=== PATIENT | female | born 1965 | race Caucasian/White ===

== ENCOUNTER 2016-12-11 08:18 | Inpatient (IN) | payer BC, SELFPAY ==
[2016-12-11 09:36] LABS: #Eosinphils 0.2 thou/uL (0.0-0.7); #Lymphocytes 2.8 thou/uL (1.20-3.40); #Monocytes 0.6 thou/uL (0.11-0.59); #Neutrophils 6.7 thou/uL (1.40-6.50); %Basophils 0.3 % (0.0-1.0); %Eosinophils 2.1 % (0.0-10.0); %Lymphocytes 27.3 % (21.0-51.0); %Monocytes 5.8 % (0.0-10.0); Hematocrit 56.4 % (36.0-47.0); Mean Platelet Volume 11.2 fL (7.4-10.4); Red Blood Cell (RBC) Count 6.55 mill/uL (4.20-5.40); White Blood Cell (WBC) Count 10.4 thou/uL (4.8-10.8)
[2016-12-11 09:44] LABS: ALT (SGPT) 24 U/L (8-55); AST (SGOT) 31 U/L (5-34); Alkaline Phosphatase 80 U/L (40-150); Anion Gap 22 mmol/L (10-20); BUN (Urea Nitrogen) 39 mg/dL (9.8-20.1); Bilirubin, Total 0.5 mg/dL (0.2-1.2); CK (CPK) 119 U/L (29-168); Calc. Creatinine Clearance 0 mL/min (70-130); Calcium 10.1 mg/dL (7.8-10.44); Carbon Dioxide 20 mmol/L (22-29); Chloride 118 mmol/L (98-107); Estimated GFR-MDRD 31
[2016-12-11 09:51] LABS: Acetaminophen Less than 6.0 mcg/mL (10.0-30.0); Salicylate Less than 8.0 mg/dL (15.0-30.0)
[2016-12-11 11:25] LABS: Troponin I 0.024 ng/mL (< 0.028)
--- NOTE | 2016-12-11 11:38 | HP ---
PRIMARY CARE PHYSICIAN: Dr. Barrios. REASON FOR ADMISSION: Acute kidney failure, severe dehydration, failure to thrive in adult. HISTORY OF PRESENT ILLNESS: A 51-year-old female who has underlying history of dementia as well as history of bipolar disorder who was brought to the emergency room by her . The patient's noticed that she appeared significantly dehydrated based on her skin, based on her and her tongue and patient was also not eating and drinking for the last several days. Whenever her was giving her food, she was keeping in her mouth and not swallowing. Similarly whenever he was trying to push her to drink liquids, she was only drinking little amount, but she was not drinking. The patient's reports that this is not because she cannot swallow, but because of she is feeling frustrated. Whenever this patient has to swallow, she can swallow well without any choking, without any dysphagia, but patient was appeared down in her mood sanchez for the last several days and she started drinking less and less as well as not eating much. The patient also lost a significant amount of weight for the last month. At home, patient was only eating yogurt and that was also very little amount. This patient has difficulty speaking and her problem is ongoing for about a year. This patient had exactly similar problem in 09/2015. At that time, the patient had dehydration and GI team was consulted to do evaluation for PEG tube, but the patient was not meeting criteria for PEG tube as the patient was able to eat. The patient's is also following her at [facility]. REVIEW OF SYSTEMS: All review of systems tried to review with the patient, but unable to review because patient has dementia plus patient is not able to talk. She is awake, but she does not want to talk, so unable to review all review of systems. PAST MEDICAL HISTORY: History of rheumatoid arthritis, diagnosed in 2014. The patient saw Dr. Gallardo in the past, hypertension, vestibular schwannoma, dementia. PAST SURGICAL HISTORY: Cholecystectomy, right knee surgery, ovarian cyst removed. PAST PSYCHIATRIC HISTORY: Bipolar disorder. ALLERGIES: Patient is allergic to CELECOXIB and CODEINE. CURRENT HOME MEDICATIONS: The patient's did not bring any medication at this point, so unable to review her home medication. Based on our previous hospital discharge summary, patient was on Limbrel 1 capsule twice daily, vitamin B12 1000 mcg daily, multivitamin 1 tablet daily, Zofran p.r.n., Protonix daily, thiamine 100 mg daily. We will verify the patient's home medication when the patient's brings medication. SOCIAL HISTORY: Patient is a former smoker. She is . She lives at home with her . No history of alcohol abuse. She has a remote history of drug use in the past, but not currently. FAMILY HISTORY: No strong family history of CAD, CVA or cancer. EMERGENCY ROOM COURSE: Patient is receiving IV fluid. PHYSICAL EXAMINATION: VITAL SIGNS: Currently, blood pressure is 131/92, pulse 107, respiratory rate 18, temperature 98.8, saturation 95% on room air, weight 72.5 kilograms. GENERAL: Patient is currently alert, arousable, no obvious acute distress. HEAD: Normocephalic, atraumatic. EYES: Pupils round, reactive to light. Extraocular muscles intact. ENT: Dry mucous membranes. No oral lesions, no pharyngeal erythema, no exudate. NECK: Supple. Range of motion is normal. No meningeal signs of irritation. LUNGS: Clear to auscultation without any rhonchi or rales. CARDIAC: S1, S2 regular without any murmur. ABDOMEN: Soft, bowel sounds present, nontender, nondistended. No organomegaly , no mass, no suprapubic tenderness. BACK: Unremarkable, no CVA tenderness. EXTREMITIES: Upper extremity: Passive movement of all joints are normal. Lower extremity: Passive movement of all joints are normal. No edema, good peripheral pulsation. SKIN: No skin rash other than dry. NEUROLOGIC: Patient is moving all four limbs. She is awake, keeps her eyes open. Moves all 4 limbs. The patient is nonverbal. She only simply nodes her head to yes or no, but focal neurological deficit is not elicited. PSYCHIATRIC: Flat affect. SIGNIFICANT LABORATORY DATA: 1. CBC: WBC 10.4, hemoglobin 16.7, platelets 256. BMP: Sodium 156, potassium 4.0, chloride 118, carbon dioxide 20, anion gap 22, BUN 39, creatinine 1.71, glucose 102, calcium 10.1. 2. LFT: AST 31, ALT 24, alkaline phosphatase 80, albumin 4.0, total protein 10.0. TSH 1.60. Serum drug screen negative. engine monitor showing sinus rhythm. ASSESSMENT AND PLAN: 1. Acute kidney failure. This patient has prerenal acute kidney failure, likely due to underlying volume depletion secondary to poor p.o. intake. At this point, the patient is receiving IV fluid in the emergency room. We will continue with dextrose half normal saline at 125 mL per hour and we will repeat BMP tomorrow. We are expecting with hydration, her renal function will improve. 2. Hypernatremia due to volume depletion and underlying dehydration. After NS , we will change IV fluid to dextrose half normal saline at 125 mL per hour and we will repeat BMP tomorrow. 3. Failure to thrive in adult, this patient has very limited p.o. intake and her p.o. intake limited is most likely underlying dementia, psychiatric problem. The patient does not have any mechanical problem for her swallowing. At this point, patient will need nutritional supplement. If this patient has recurrent problems with dehydration and volume depletion, then in future, we may need to address PEG tube placement. 4. Dementia of unclear etiology. The patient will need supportive treatment. We will continue with vitamin therapy. 5. Bipolar disorder. The patient is not on any specific medication at this point, but will bring her home medication and restart all those medications. This patient will need MR follow up. We will try to consult MR to see if this patient needs any inpatient psychiatric treatment for her behavior not to eat. 6. Metabolic acidosis, elevated anion gap, likely due to acute kidney failure. We will repeat BMP tomorrow. 7. Deep venous thrombosis prophylaxis, heparin 5000 units subcu twice daily. 8. Gastrointestinal prophylaxis, Protonix 40 mg p.o. daily. CODE STATUS: The patient is FULL CODE. Patient's is surrogate decision maker. Disposition and plan based on clinical course. We are expecting patient's stay in hospital more than 2 midnights. Plan of care discussed with the patient's at bedside in the emergency room. JOCELYNE
[2016-12-11] MEDS ORDERED: Loratadine 10 MG TAB PO PRN (12:27)
[2016-12-11] MEDS ORDERED: Senokot 8.6 MG TAB PO PRN (12:27)
[2016-12-11] MEDS ORDERED: Loperamide HCl 2 MG CAP PO PRN (12:27)
[2016-12-11] MEDS ORDERED: Milk Of Magnesia 30 ML UDCUP PO PRN (12:27)
[2016-12-11] MEDS ORDERED: Eucerin (Mineral Oil/Petrolatum,White) 30 gm Jar TOP PRN (12:27)
[2016-12-11] MEDS ORDERED: Ondansetron ODT 4 MG TAB PO PRN (12:27)
[2016-12-11] MEDS ORDERED: Diabetic Tussin 200 MG/10 ML UDCUP PO PRN (12:27)
[2016-12-11] MEDS ORDERED: Sodium Chloride 0.65% Nasal 44 ML BOT EA NARE PRN (12:27)
[2016-12-11] MEDS ORDERED: Ondansetron HCl/PF 4 MG/2 ML Vial IVP PRN (12:27)
[2016-12-11] MEDS ORDERED: Zolpidem Tartrate 5 MG TAB PO PRN (12:27)
[2016-12-11] MEDS ORDERED: Mag-Al 1200 mg/1200 mg/30 ML UDCUP PO PRN (12:27)
[2016-12-11] MEDS ORDERED: Acetaminophen 325 MG TAB PO PRN (12:27)
[2016-12-11] MEDS ORDERED: Artificial Tears 18 DROP/0.9 ML EA EYE PRN (12:27)
[2016-12-11 12:29] VITALS: BMI 28.6
[2016-12-11] MEDS: Dextrose 5 %-0.45 % NaCl 1,000 ML IV SCH ×2 (13:35→20:46)
--- NOTE | 2016-12-11 13:59 | CT ---
CT BRAIN NONCONTRAST: DATE: 12/11/16 HISTORY: 51-year-old female with altered mental status, dementia, and depression, with anorexia. COMPARISON: No prior brain CTs. There is a MRI of 10/13/15. FINDINGS: There is diffuse brain parenchymal volume loss of the cerebrum, especially the frontal lobes, greate r than expected for age. There is asymmetrically prominent greater degree of focal atrophy involving the right temporal tip. There is no significant parenchymal volume loss involving the brainstem or cerebellum. The lateral and third ventricles are mildly dilated on an ex vacuo basis, especially the right temporal horn. No acute intra-axial or extra-axial hemorrhage, mass effect, midline shift, or extra-axial fluid collection. Paranasal sinuses are clear. The calvarium is intact. IMPRESSION: 1. Brain atrophy, greater than expected for age. Consider frontotemporal dementia. 2. Encephalomalacia in the anterior portion of the right temporal lobe (temporal tip), which may re present an old insult, such as prior trauma or old infarction. 3. No acute intracranial findings. JOSE Castro POS: MAKSIM
[2016-12-11] MEDS: Heparin 5,000 UNITS/ML VIAL SC SCH (20:45)
[2016-12-12] MEDS: Dextrose 5 %-0.45 % NaCl 1,000 ML IV SCH ×3 (02:30→20:02)
[2016-12-12 05:25] LABS: #Basophils 0.1 thou/uL (0.0-0.2); #Eosinphils 0.3 thou/uL (0.0-0.7); #Monocytes 0.6 thou/uL (0.11-0.59); #Neutrophils 3.6 thou/uL (1.40-6.50); %Basophils 0.7 % (0.0-1.0); %Eosinophils 4.4 % (0.0-10.0); %Lymphocytes 39.5 % (21.0-51.0); %Monocytes 7.6 % (0.0-10.0); Mean Platelet Volume 11.1 fL (7.4-10.4); Red Blood Cell (RBC) Count 5.17 mill/uL (4.20-5.40); White Blood Cell (WBC) Count 7.5 thou/uL (4.8-10.8)
[2016-12-12 06:17] LABS: ALT (SGPT) 15 U/L (8-55); AST (SGOT) 23 U/L (5-34); Alkaline Phosphatase 58 U/L (40-150); Anion Gap 8 mmol/L (10-20); BUN (Urea Nitrogen) 28 mg/dL (9.8-20.1); Bilirubin, Total 0.5 mg/dL (0.2-1.2); Calc. Creatinine Clearance 66 mL/min (70-130); Calcium 8.7 mg/dL (7.8-10.44); Carbon Dioxide 24 mmol/L (22-29); Chloride 120 mmol/L (98-107); Estimated GFR-MDRD 49; Globulin 4.2 g/dL (2.4-3.5); Protein, Total 7.2 g/dL (6.0-8.3)
[2016-12-12] MEDS: Heparin 5,000 UNITS/ML VIAL SC SCH ×2 (07:49→20:02)
[2016-12-12] MEDS ORDERED: Potassium Chloride 20 MEQ/100 ML PREMIX BAG IVPB SCH (08:45)
[2016-12-12 11:12] LABS: Bilirubin Small (Negative); Blood, Urine Negative (Negative); Glucose, Urine (Dipstick) Negative (Negative); Ketone, Urine Negative (Negative); Nitrite Negative (Negative); Protein, Urine (Dipstick) Trace mg/dL (Neg-Trace)
[2016-12-12 11:26] LABS: Bacteria/HPF 2+ HPF (None Seen); Hyaline Casts/LPF 7-10 HYALINE CAST LPF (0-3 Hyaline); RBC/HPF 0-3 HPF (0-3)
--- NOTE | 2016-12-12 14:44 | PDOC.PN ---
- Subjective Encounter Start Date: 12/12/16 Encounter Start Time: 11:45 -: old records requested/rev Patient seen and examined. No overnight events, still has no po intake, no fever - Objective Resuscitation Status: Resuscitation Status FULL:Full Resuscitation MAR Reviewed: Yes Vital Signs & Weight: Vital Signs (12 hours) Temp Pulse Resp BP Pulse Ox 12/12/16 11:31 98.4 F 65 16 117/68 100 12/12/16 07:59 98.5 F 65 18 142/92 H 95 12/12/16 07:55 98.5 F 62 20 98 12/12/16 04:00 98.5 F 74 20 137/84 98 Result Diagrams: 12/12/16 04:55 12/12/16 04:55 Phys Exam - Physical Examination Constitutional: NAD HEENT: PERRLA, moist MMs, sclera anicteric Neck: no JVD, supple Respiratory: no wheezing, no rales, no rhonchi Cardiovascular: RRR, no significant murmur, no rub Gastrointestinal: soft, non-tender, no distention, positive bowel sounds Musculoskeletal: no edema, pulses present Neurological: non-focal, normal sensation, moves all 4 limbs Lymphatic: no nodes Psychiatric: normal affect Skin: no rash, normal turgor Dx/Plan (1) Dehydration Code(s): E86.0 - DEHYDRATION Status: Acute (2) UTI (urinary tract infection) Status: Acute (3) Acute kidney failure Status: Acute (4) Hypernatremia Code(s): E87.0 - HYPEROSMOLALITY AND HYPERNATREMIA Status: Acute (5) Hypokalemia Code(s): E87.6 - HYPOKALEMIA Status: Acute (6) Failure to thrive in adult Status: Acute (7) Inadequate oral nutritional intake Code(s): R63.8 - OTHER SYMPTOMS AND SIGNS CONCERNING FOOD AND FLUID INTAKE Status: Acute (8) Vestibular schwannoma Code(s): D33.3 - BENIGN NEOPLASM OF CRANIAL NERVES Status: Acute (9) Weight loss Status: Acute (10) Bipolar disorder Code(s): F31.9 - BIPOLAR DISORDER, UNSPECIFIED Status: Chronic (11) Rheumatoid arthritis Code(s): M06.9 - RHEUMATOID ARTHRITIS, UNSPECIFIED Status: Chronic - Plan cont current plan of care, plan discussed w/ family, continue antibiotics, director of social services * continue dex with 1/2 ns at 125 ml per hour * medication reviewed as below * symptomatic treatment * will repeat labs tomorrow * send urine culture and start rocephin 1 gm iv daily * discussed with * may need [facility] evaluation. Review of Systems - Review of Systems Other: unable to review as pt is non verbal and confused - Medications/Allergies Allergies/Adverse Reactions: Allergies Allergy/AdvReac Type Severity Reaction Status Date / Time codeine Allergy Verified 12/11/16 12:26 meperidine HCl [From Demerol] Allergy Verified 12/11/16 12:26 Medications: Current Medications Acetaminophen (Tylenol) 650 mg PO Q4H PRN PRN Reason: Headache/Fever or Pain Al Hydroxide/Mg Hydroxide (Maalox) 30 ml PO Q6H PRN PRN Reason: Heartburn or Indigestion Artificial Tears (Tears Naturale) 0 drop EA EYE PRN PRN PRN Reason: Dry Eyes Guaifenesin (Robitussin Sf) 200 mg PO Q4H PRN PRN Reason: Cough Heparin Sodium (Porcine) (Heparin) 5,000 units SC BID [facility] Last Admin: 12/12/16 07:49 Dose: 5,000 units Hydralazine HCl (Apresoline) 10 mg SLOW IVP Q4H PRN PRN Reason: Systolic BP > 180 Dextrose/Sodium Chloride (D5 1/2 Ns) 1,000 mls @ 125 mls/hr IV .Q8H [facility] Last Admin: 12/12/16 10:38 Dose: 1,000 mls Loperamide HCl (Imodium) 2 mg PO PRN PRN PRN Reason: Diarrhea/Loose Stools Loratadine (Claritin) 10 mg PO DAILYPRN PRN PRN Reason: Sinus Symptoms Magnesium Hydroxide (Milk Of Magnesium) 30 ml PO DAILYPRN PRN PRN Reason: Constipation Mineral Oil/White Petrolatum (Eucerin Cream) 0 gm TOP BIDPRN PRN PRN Reason: Dry Skin Ondansetron HCl (Zofran Odt) 4 mg PO Q6H PRN PRN Reason: Nausea/Vomiting Ondansetron HCl (Zofran) 4 mg IVP Q6H PRN PRN Reason: Nausea/Vomiting Senna (Senokot) 2 tab PO HSPRN PRN PRN Reason: Constipation Sodium Chloride ([place] Nasal [place] 0.65%) 0 ml EA NARE QIDPRN PRN PRN Reason: Nasal Congestion Sodium Chloride (Flush - Normal Saline) 10 ml IVF Q12HR [facility] Last Admin: 12/12/16 07:49 Dose: 10 ml Sodium Chloride (Flush - Normal Saline) 10 ml IVF PRN PRN PRN Reason: Saline Flush Zolpidem Tartrate (Ambien) 5 mg PO HSPRN PRN PRN Reason: Insomnia
[2016-12-12] MEDS: cefTRIAXone\\ROCEPHIN 1 GM in Sodium Chloride 0.9% 100 ML IVPB SCH (16:56)
[2016-12-13] MEDS: Dextrose 5 %-0.45 % NaCl 1,000 ML IV SCH ×2 (04:07→12:13)
[2016-12-13 05:41] LABS: #Eosinphils 0.2 thou/uL (0.0-0.7); #Monocytes 0.6 thou/uL (0.11-0.59); #Neutrophils 3.8 thou/uL (1.40-6.50); %Basophils 0.3 % (0.0-1.0); %Lymphocytes 30.1 % (21.0-51.0); %Monocytes 8.5 % (0.0-10.0); Hematocrit 44.1 % (36.0-47.0); Mean Platelet Volume 11.3 fL (7.4-10.4); Red Blood Cell (RBC) Count 5.14 mill/uL (4.20-5.40); White Blood Cell (WBC) Count 6.6 thou/uL (4.8-10.8)
[2016-12-13 06:04] LABS: Anion Gap 11 mmol/L (10-20); BUN (Urea Nitrogen) 10 mg/dL (9.8-20.1); Calc. Creatinine Clearance 85 mL/min (70-130); Calcium 8.1 mg/dL (7.8-10.44); Carbon Dioxide 21 mmol/L (22-29); Chloride 113 mmol/L (98-107); Estimated GFR-MDRD 66; Magnesium 1.7 mg/dL (1.6-2.6)
[2016-12-13] MEDS ORDERED: Potassium Phosphate 30 MMOL, Admixture Fee 1 EACH in Sodium Chloride 0.9% 500 ML IVPB SCH (07:00)
[2016-12-13] MEDS: Heparin 5,000 UNITS/ML VIAL SC SCH ×2 (08:18→21:16)
[2016-12-13] MEDS ORDERED: K-Phos Neutral 250 MG TAB PO SCH (10:30)
--- NOTE | 2016-12-13 11:28 | PDOC.PN ---
- Subjective Encounter Start Date: 12/13/16 Encounter Start Time: 07:00 - Objective Resuscitation Status: Resuscitation Status FULL:Full Resuscitation MAR Reviewed: Yes Vital Signs & Weight: Vital Signs (12 hours) Temp Pulse Resp BP Pulse Ox 12/13/16 08:00 97.9 F 71 18 12/13/16 04:00 97.9 F 71 18 126/65 99 12/13/16 00:00 98.1 F 74 18 122/70 96 Weight Admit Weight 161 lb 11.2 oz Weight 161 lb 11.2 oz I&O: 12/12/16 12/13/16 12/14/16 06:59 06:59 06:59 Intake Total 1500 Balance 1500 Result Diagrams: 12/13/16 05:23 12/13/16 05:23 Phys Exam - Physical Examination Constitutional: NAD HEENT: PERRLA, moist MMs, sclera anicteric Neck: no JVD, supple Respiratory: no wheezing, no rales, no rhonchi Cardiovascular: RRR, no significant murmur, no rub Gastrointestinal: soft, non-tender, no distention, positive bowel sounds Musculoskeletal: no edema, pulses present Neurological: non-focal, normal sensation Psychiatric: normal affect Skin: no rash, normal turgor Dx/Plan (1) Dehydration Code(s): E86.0 - DEHYDRATION Status: Acute (2) UTI (urinary tract infection) Status: Acute (3) Acute kidney failure Status: Acute (4) Hypernatremia Code(s): E87.0 - HYPEROSMOLALITY AND HYPERNATREMIA Status: Acute (5) Hypokalemia Code(s): E87.6 - HYPOKALEMIA Status: Acute (6) Failure to thrive in adult Status: Acute (7) Vestibular schwannoma Code(s): D33.3 - BENIGN NEOPLASM OF CRANIAL NERVES Status: Chronic (8) Bipolar disorder Code(s): F31.9 - BIPOLAR DISORDER, UNSPECIFIED Status: Chronic (9) Rheumatoid arthritis Code(s): M06.9 - RHEUMATOID ARTHRITIS, UNSPECIFIED Status: Chronic - Plan cont current plan of care, plan discussed w/ family * replace K phos * MR * Speech evaluation * Neuro consult * possible discharge later today after above * medication reviewed as below * symptomatic treatment. Review of Systems - Review of Systems Other: unable to review as pt is non verbal - Medications/Allergies Allergies/Adverse Reactions: Allergies Allergy/AdvReac Type Severity Reaction Status Date / Time codeine Allergy Verified 12/11/16 12:26 meperidine HCl [From Demerol] Allergy Verified 12/11/16 12:26 Medications: Current Medications Acetaminophen (Tylenol) 650 mg PO Q4H PRN PRN Reason: Headache/Fever or Pain Al Hydroxide/Mg Hydroxide (Maalox) 30 ml PO Q6H PRN PRN Reason: Heartburn or Indigestion Artificial Tears (Tears Naturale) 0 drop EA EYE PRN PRN PRN Reason: Dry Eyes Guaifenesin (Robitussin Sf) 200 mg PO Q4H PRN PRN Reason: Cough Heparin Sodium (Porcine) (Heparin) 5,000 units SC BID [facility]S [facility]CLUDE 234 BEDS AT THE [facility] Last Admin: 12/13/16 08:18 Dose: 5,000 units Hydralazine HCl (Apresoline) 10 mg SLOW IVP Q4H PRN PRN Reason: Systolic BP > 180 Dextrose/Sodium Chloride (D5 1/2 Ns) 1,000 mls @ 125 mls/hr IV .Q8H COUNTS INCLUDE 234 BEDS AT THE [facility] Last Admin: 12/13/16 04:07 Dose: 1,000 mls Ceftriaxone Sodium 1 gm/ (Sodium Chloride) 100 mls @ 200 mls/hr IVPB Q24HR COUNTS INCLUDE 234 BEDS AT THE [facility] Last Admin: 12/12/16 16:56 Dose: 100 mls Potassium Phosphate 30 mmol/Miscellaneous Medication 1 each/ Sodium Chloride 510 mls @ 83.3 mls/hr IVPB ONE COUNTS INCLUDE 234 BEDS AT THE [facility] Stop: 12/13/16 12:00 Last Admin: 12/13/16 08:17 Dose: 510 mls Loperamide HCl (Imodium) 2 mg PO PRN PRN PRN Reason: Diarrhea/Loose Stools Loratadine (Claritin) 10 mg PO DAILYPRN PRN PRN Reason: Sinus Symptoms Magnesium Hydroxide (Milk Of Magnesium) 30 ml PO DAILYPRN PRN PRN Reason: Constipation Mineral Oil/White Petrolatum (Eucerin Cream) 0 gm TOP BIDPRN PRN PRN Reason: Dry Skin Mirtazapine (Remeron) 15 mg PO HS COUNTS INCLUDE 234 BEDS AT THE [facility] Ondansetron HCl (Zofran Odt) 4 mg PO Q6H PRN PRN Reason: Nausea/Vomiting Ondansetron HCl (Zofran) 4 mg IVP Q6H PRN PRN Reason: Nausea/Vomiting Phosphorus (Kphos Neutral) 500 mg PO NOW [facility] Stop: 12/13/16 12:00 Senna (Senokot) 2 tab PO HSPRN PRN PRN Reason: Constipation Sodium Chloride ([place] Nasal [place] 0.65%) 0 ml EA NARE QIDPRN PRN PRN Reason: Nasal Congestion Sodium Chloride (Flush - Normal Saline) 10 ml IVF Q12HR COUNTS INCLUDE 234 BEDS AT THE [facility] Last Admin: 12/13/16 08:18 Dose: Not Given Sodium Chloride (Flush - Normal Saline) 10 ml IVF PRN PRN PRN Reason: Saline Flush Zolpidem Tartrate (Ambien) 5 mg PO HSPRN PRN PRN Reason: Insomnia
--- NOTE | 2016-12-13 11:38 | DIS ---
DATE OF ADMISSION: 12/11/2016 DATE OF DISCHARGE: 12/13/2016 PRIMARY CARE PHYSICIAN: Dr. Barrios. DISCHARGE DISPOSITION: Home. PRIMARY DISCHARGE DIAGNOSES: 1. Acute kidney failure, prerenal. 2. Dehydration. 3. Hypernatremia. 4. Hypokalemia. 5. Hypophosphatemia. 6. Urinary tract infection. SECONDARY DISCHARGE DIAGNOSES: Vestibular schwannoma, rheumatoid arthritis, bipolar disorder, front otemporal dementia, failure to thrive in adult. PRIMARY PROCEDURE/OPERATION: None. RADIOLOGICAL INVESTIGATION: CT brain showed brain atrophy out of proportion to her age and frontote mporal atrophy. SIGNIFICANT LABS: Hemoglobin 13.4, creatinine 0.89. LFTs normal. Urinalysis suggestive of UTI. U rine culture negative by the time of dictation. DISCHARGE MEDICATIONS: Amlodipine 5 mg p.o. daily, Cipro 500 mg p.o. b.i.d. for 5 days, folic acid 1 mg p.o. daily, Latuda 20 mg p.o. daily, Remeron 15 mg p.o. at bedtime. CONTRAINDICATIONS: None. CODE STATUS: FULL CODE. INPATIENT CONSULTANTS: Dr. Lizzie Carpenter and [facility] was consulted while in hospital. TEST RESULTS PENDING ON DISCHARGE: None. ALLERGIES: CODEINE, DEMEROL. DISCHARGE PLAN: Post hospital, the patient will follow up with primary care physician, Dr. Samuel [facility] and [facility] as instructed. HOSPITAL COURSE: A 51-year-old female who has underlying bipolar disorder and mood disorder. She w as not eating and drinking enough at home. Though, she does not have any mechanical obstruction. B ased on her mood, she sometimes eats and drinks but not in adequate quantity. She was brought to [facility] ER because the patient was more weak and more lethargic and she was found with acute kidney failur e and hypernatremia. The patient was clinically dehydrated. Her CT brain showed brain atrophy and frontotemporal atrophy. During this admission, we hydrated her with IV fluid and her all abnormal e lectrolytes were corrected. We consulted [facility] and at this point the patient does not have any active psychiatric illness as per [facility] and the patient's wanted to take care of her at home. We are also consulting neurology before discharge if any new recommendation from their perspective. We are adding Remeron to stimul ate appetite. At this point, the patient does not have any mechanical obstruction. She periodicall y eats and drinks, but not in adequate quantity and that is why she is at risk for recurrent admissi on. If this patient requires recurrent admission because of same problem, then she may need in futu re PEG tube placement if indicated. The patient is seen and examined at bedside today. PHYSICAL EXAMINATION: VITAL SIGNS: Currently, temperature 97.9, pulse 71, respiratory rate 18, blood pressure 126/65. We ight 161 pounds. GENERAL: The patient is awake, nonverbal. EXTREMITIES: She moves all 4 limbs. She is able to go to bathroom by herself. Her examination ot herwise unremarkable. Plan of care discussed with the patient's . All new medication prescription will be sent to her pharmacy once Neurology see this patient and if they cleared her for discharge, then we will con realtime reporter discharging home later on today.
[2016-12-13] MEDS: cefTRIAXone\\ROCEPHIN 1 GM in Sodium Chloride 0.9% 100 ML IVPB SCH (15:25)
[2016-12-13] MEDS ORDERED: Ciprofloxacin 500 MG TAB PO SCH (16:00)
[2016-12-13] MEDS ORDERED: Mirtazapine 15 MG TAB PO SCH (21:00)
[2016-12-13] MEDS: Ciprofloxacin 500 MG TAB PO SCH (21:15)
[2016-12-14] MEDS: Ciprofloxacin 500 MG TAB PO SCH (05:47)
[2016-12-14] MEDS: Dextrose 5 %-0.45 % NaCl 1,000 ML IV SCH (05:52)
[2016-12-14 08:09] VITALS: BP 116/75; TEMP 97.1
--- NOTE | 2016-12-14 08:44 | CON ---
DATE OF CONSULTATION: 12/13/2016 REFERRING PHYSICIAN: Dr. Sergo Lu REASON FOR CONSULTATION: Confusion. HISTORY OF PRESENT ILLNESS: Ms. Lott is a pleasant 51-year-old female who has been con sulted for evaluation of confusion. History is obtained from the patient's who was present at bedside. reports that the patient started having episodes of memory and cognitive diffic ulties approximately 2-3 years ago. This has gradually gotten worse over time. She has seen Dr. Quick in the clinic and has been diagnosed with frontotemporal dementia. He reports that she whitley s been unable to perform any activities around the house. She requires care on most of the activiti es of daily living. He reports that recently over the past one month, she has stopped talking. He also notes that over the past few days she has stopped eating and has lost a significant amount of w eight over the last one month. As her symptoms were getting worse, he decided to bring her to the [facility] Emergency Room for further evaluation. On admission here, she is noted to have a urinary tract infection as well as severe dehydration with acute renal failure. She is being admitted for f urther workup and management of this. PAST MEDICAL HISTORY: Significant for rheumatoid arthritis, hypertension, vestibular schwannoma and frontotemporal dementia. Bipolar disorder. PAST SURGICAL HISTORY: Cholecystectomy, right knee surgery, and ovarian cyst removal. CURRENT MEDICATIONS: Please review MAR. ALLERGIES: Include CELECOXIB and CODEINE. SOCIAL HISTORY: She is a former smoker. She denies alcohol use or illicit drug use. She is marrie d. FAMILY HISTORY: Noncontributory. REVIEW OF SYSTEMS: Unable to perform. PHYSICAL EXAMINATION: VITAL SIGNS: Blood pressure of 105/68, pulse of 101, temperature of 98.4, respirations of 18, O2 sa t 100% on room air. GENERAL: Well-developed, well-nourished female resting in bed in no apparent distress. RESPIRATORY: Clear to auscultation bilaterally. CARDIOVASCULAR: Regular rate and rhythm. NEUROLOGIC: Mental status: The patient is awake and alert, but not able to follow any commands and is nonverbal. Speech and language; nonverbal. Cranial nerves: Pupils are 3 mm and reactive. She blinks to threat on both sides. She is able to track me around the room with good eye contact. Fa ce appears symmetric. Motor exam showed normal tone and bulk. She does withdraw to pain on both up per and lower extremities. LABORATORY DATA: Reviewed, which included CBC, CMP, urinalysis and drug screen which is significant for potassium of 3.0. Urinalysis showed large leukocyte esterase and greater than 50 to too pavel us to count WBCs with 2+ bacteria. IMAGING STUDIES: CT head without contrast was reviewed, which showed no acute intracranial abnormal ity. IMPRESSION: 1. Toxic metabolic encephalopathy. 2. Acute renal failure secondary to dehydration. 3. Frontotemporal dementia. Ms. Lott is a pleasant 51-year-old female who presented with the failure to thrive and worsening confusion. This is likely secondary to underlying toxic metabolic encephalopathy. I have discussed with the in detail and explained that she has an advance of frontotemporal nicolle ia. She needs to be applying for Disability as she would be a good candidate. We discussed about a feeding tube since she is not taking anything by mouth. It would be important for her to have a so urce of nutrition and PEG tube would be a good option. There is no further neurological workup need ed from my standpoint. Thank you for the consultation.
[2016-12-14] MEDS: Heparin 5,000 UNITS/ML VIAL SC SCH (08:46)
--- NOTE | 2016-12-14 09:38 | PDOC.PN ---
- Subjective Encounter Start Date: 12/14/16 Encounter Start Time: 07:00 Patient seen and examined. No new complaints. No overnight events - Objective Resuscitation Status: Resuscitation Status FULL:Full Resuscitation MAR Reviewed: Yes Vital Signs & Weight: Vital Signs (12 hours) Temp Pulse Resp BP Pulse Ox 12/14/16 08:00 97.1 F L 71 16 116/75 97 12/14/16 00:00 97.7 F 77 18 124/79 96 Weight Admit Weight 161 lb 11.2 oz Weight 161 lb 11.2 oz I&O: 12/13/16 12/14/16 12/15/16 06:59 06:59 06:59 Intake Total 1500 Balance 1500 Result Diagrams: 12/13/16 05:23 12/13/16 05:23 Phys Exam - Physical Examination Constitutional: NAD HEENT: PERRLA, moist MMs, sclera anicteric Neck: no JVD, supple Respiratory: no wheezing, no rales, no rhonchi Cardiovascular: RRR, no significant murmur, no rub Gastrointestinal: soft, non-tender, no distention, positive bowel sounds Musculoskeletal: no edema, pulses present Neurological: non-focal, normal sensation Psychiatric: normal affect Skin: no rash, normal turgor Dx/Plan (1) Dehydration Code(s): E86.0 - DEHYDRATION Status: Acute (2) UTI (urinary tract infection) Status: Acute (3) Acute kidney failure Status: Acute (4) Hypernatremia Code(s): E87.0 - HYPEROSMOLALITY AND HYPERNATREMIA Status: Acute (5) Hypokalemia Code(s): E87.6 - HYPOKALEMIA Status: Acute (6) Failure to thrive in adult Status: Acute (7) 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 * symptomatic treatment * will discharge today Review of Systems - Review of Systems Other: unable to review due to dementia - Medications/Allergies Allergies/Adverse Reactions: Allergies Allergy/AdvReac Type Severity Reaction Status Date / Time codeine Allergy Verified 12/11/16 12:26 meperidine HCl [From Demerol] Allergy Verified 12/11/16 12:26 Medications: Current Medications Acetaminophen (Tylenol) 650 mg PO Q4H PRN PRN Reason: Headache/Fever or Pain Al Hydroxide/Mg Hydroxide (Maalox) 30 ml PO Q6H PRN PRN Reason: Heartburn or Indigestion Artificial Tears (Tears Naturale) 0 drop EA EYE PRN PRN PRN Reason: Dry Eyes Ciprofloxacin (Cipro) 500 mg PO 0600,1999 [facility] Last Admin: 12/14/16 05:47 Dose: 500 mg Guaifenesin (Robitussin Sf) 200 mg PO Q4H PRN PRN Reason: Cough Heparin Sodium (Porcine) (Heparin) 5,000 units SC BID [facility] Last Admin: 12/14/16 08:46 Dose: 5,000 units Hydralazine HCl (Apresoline) 10 mg SLOW IVP Q4H PRN PRN Reason: Systolic BP > 180 Loperamide HCl (Imodium) 2 mg PO PRN PRN PRN Reason: Diarrhea/Loose Stools Loratadine (Claritin) 10 mg PO DAILYPRN PRN PRN Reason: Sinus Symptoms Magnesium Hydroxide (Milk Of Magnesium) 30 ml PO DAILYPRN PRN PRN Reason: Constipation Mineral Oil/White Petrolatum (Eucerin Cream) 0 gm TOP BIDPRN PRN PRN Reason: Dry Skin Mirtazapine (Remeron) 15 mg PO [facility] Last Admin: 12/13/16 21:15 Dose: 15 mg Ondansetron HCl (Zofran Odt) 4 mg PO Q6H PRN PRN Reason: Nausea/Vomiting Ondansetron HCl (Zofran) 4 mg IVP Q6H PRN PRN Reason: Nausea/Vomiting Senna (Senokot) 2 tab PO HSPRN PRN PRN Reason: Constipation Sodium Chloride ([employer] Nasal [place] 0.65%) 0 ml EA NARE QIDPRN PRN PRN Reason: Nasal Congestion Sodium Chloride (Flush - Normal Saline) 10 ml IVF Q12HR [facility] Last Admin: 12/14/16 08:47 Dose: Not Given Sodium Chloride (Flush - Normal Saline) 10 ml IVF PRN PRN PRN Reason: Saline Flush Zolpidem Tartrate (Ambien) 5 mg PO HSPRN PRN PRN Reason: Insomnia
--- NOTE | 2016-12-14 12:16 | ADD-DIS ---
Please see my discharge summary dictated yesterday for further details. After discharge the patient was kept in the hospital for neurologic consultation and Dr. Carpenter saw th is patient and he recommended that there is no new need for further investigation. He was recommend ing to put PEG tube placement and the patient to be on Disability. Today, I spoke with the patient's and he was not interested in going for PEG tube this admis abebe, but that he wanted to wait until next admission, at that time he will decide. He wanted to se e how he does at home with oral intake. Speech Therapy saw this patient as well and they do not hav e any new recommendation from their perspective. The patient is seen and examined at bedside today. Please see my progress note from today for furth er details and see discharge summary dictated from yesterday.
[2016-12-14] MEDS ORDERED: FLU VACC QS2017-18 36 mo. & older 0.5 ML SYRINGE IM ONE (14:00)
--- NOTE | 2016-12-18 12:58 | EKG ---
Test Reason : Blood Pressure : / mmHG Vent. Rate : 083 BPM Atrial Rate : 083 BPM P-R Int : 106 ms QRS Dur : 072 ms QT Int : 362 ms P-R-T Axes : 026 001 030 degrees QTc Int : 425 ms Sinus rhythm with short AL Nonspecific T wave abnormality Abnormal ECG Confirmed by JOSEY ANAND ([id number]), science editor GAMA FOLEY ([id number]) on 12/18/2016 12:57:35 PM Referred By: Confirmed By:JOSEY ANAND
== END 2016-12-14 15:09 | disposition home or self-care (01) | DRG 682 ==
LOC: ERS 08:18 → T4-B 12:04
PROVIDERS: ADMIT Internal Medicine; ATTEND Internal Medicine
DX: N17.9 Acute kidney failure, unspecified (principal); G92 Toxic encephalopathy; E87.0 Hyperosmolality and hypernatremia; E87.2 Acidosis; N39.0 Urinary tract infection, site not specified; F03.90 Unspecified dementia, unspecified severity, without behavioral disturbance, psychotic disturbance, mood disturbance, and anxiety; R62.7 Adult failure to thrive; E86.0 Dehydration; F31.9 Bipolar disorder, unspecified; M06.9 Rheumatoid arthritis, unspecified; D36.10 Benign neoplasm of peripheral nerves and autonomic nervous system, unspecified; Z88.5 Allergy status to narcotic agent; Z88.8 Allergy status to other drugs, medicaments and biological substances; Z87.891 Personal history of nicotine dependence; F19.11 Other psychoactive substance abuse, in remission; E87.6 Hypokalemia; E83.39 Other disorders of phosphorus metabolism; I10 Essential (primary) hypertension; F41.9 Anxiety disorder, unspecified
CPT/HCPCS: 36415; 70450; 80048; 80053; 80307; 81001; 82550; 82553; 83690; 83735; 84100; 84443; 84484; 85025; 87086; 90471; 90682; 93005; 96360; 96361; A4216; G0008; G8996-GN-CL; G8997-GN-CL; J0696; J1644; J3480; J7050; Q2036

== ENCOUNTER 2016-12-22 10:30 | Emergency (ER) | payer SELFPAY ==
--- NOTE | 2016-12-22 12:38 | RAD ---
FOUR VIEWS RIGHT ELBOW: Comparison: None. History: Right elbow pain after fall this morning. FINDINGS: Four views of the right elbow shows no evidence of acute fracture or dislocation. No elbow effusion is seen, but a true lateral radiograph was not performed, limiting evaluation. No degenerative olvera es are seen in the right elbow joint. IMPRESSION: No evidence of acute osseous abnormality. POS: [facility]
[2016-12-22 12:50] LABS: #Monocytes 0.5 thou/uL (0.11-0.59); #Neutrophils 9.2 thou/uL (1.40-6.50); %Basophils 0.2 % (0.0-1.0); %Eosinophils 0.4 % (0.0-10.0); %Lymphocytes 9.1 % (21.0-51.0); Hematocrit 49.4 % (36.0-47.0); Red Blood Cell (RBC) Count 5.81 mill/uL (4.20-5.40); White Blood Cell (WBC) Count 10.8 thou/uL (4.8-10.8)
[2016-12-22 13:13] LABS: ALT (SGPT) 14 U/L (8-55); AST (SGOT) 26 U/L (5-34); Alkaline Phosphatase 66 U/L (40-150); Anion Gap 21 mmol/L (10-20); BUN (Urea Nitrogen) 13 mg/dL (9.8-20.1); Bilirubin, Total 0.6 mg/dL (0.2-1.2); Calc. Creatinine Clearance 0 mL/min (70-130); Calcium 9.9 mg/dL (7.8-10.44); Carbon Dioxide 21 mmol/L (22-29); Chloride 107 mmol/L (98-107); Estimated GFR-MDRD 59; Globulin 5.6 g/dL (2.4-3.5); Protein, Total 9.1 g/dL (6.0-8.3)
--- NOTE | 2016-12-22 13:14 | RAD ---
THREE VIEWS OF THE RIGHT SHOULDER: HISTORY: Fall this morning with right shoulder pain. COMPARISON: None. FINDINGS: Three views of the right shoulder show a fracture through the right humeral head. No dislocation of the glenohumeral joint is seen. The fracture may or may not extend to the articular aspect of the glenohumeral joint. IMPRESSION: Proximal right humerus fracture. POS: [facility]
== END 2016-12-22 14:25 | disposition home or self-care (01) ==
LOC: ERS 10:30
DX: S42.201A Unspecified fracture of upper end of right humerus, initial encounter for closed fracture (principal); E86.9 Volume depletion, unspecified; I20.9 Angina pectoris, unspecified; I10 Essential (primary) hypertension; F31.9 Bipolar disorder, unspecified; F41.9 Anxiety disorder, unspecified; M06.9 Rheumatoid arthritis, unspecified; F17.210 Nicotine dependence, cigarettes, uncomplicated; W01.0XXA Fall on same level from slipping, tripping and stumbling without subsequent striking against object, initial encounter
CPT/HCPCS: 36415; 80053; 85025; 93005; 96360

== ENCOUNTER 2017-01-01 20:17 | Inpatient (IN) | payer OTHER, SELFPAY ==
[2017-01-01 22:27] LABS: #Basophils 0.1 thou/uL (0.0-0.2); #Eosinphils 0.1 thou/uL (0.0-0.7); #Lymphocytes 3.2 thou/uL (1.20-3.40); #Neutrophils 8.3 thou/uL (1.40-6.50); %Basophils 0.6 % (0.0-1.0); %Eosinophils 0.4 % (0.0-10.0); %Lymphocytes 25.2 % (21.0-51.0); Hematocrit 45.8 % (36.0-47.0); Mean Platelet Volume 9.5 fL (7.4-10.4); Red Blood Cell (RBC) Count 5.45 mill/uL (4.20-5.40); White Blood Cell (WBC) Count 12.6 thou/uL (4.8-10.8)
[2017-01-01] MEDS ORDERED: Ondansetron HCl/PF 4 MG/2 ML Vial ONE ×2 (22:27→23:54)
[2017-01-01 22:45] LABS: Lactic Acid - Sepsis 2.3 mmol/L (0.5-2.2)
[2017-01-01 22:49] LABS: ALT (SGPT) 24 U/L (8-55); AST (SGOT) 27 U/L (5-34); Alkaline Phosphatase 108 U/L (40-150); Anion Gap 16 mmol/L (10-20); BUN (Urea Nitrogen) 13 mg/dL (9.8-20.1); Calc. Creatinine Clearance 0 mL/min (70-130); Calcium 9.6 mg/dL (7.8-10.44); Carbon Dioxide 25 mmol/L (22-29); Chloride 100 mmol/L (98-107); Estimated GFR-MDRD 50; Globulin 5.1 g/dL (2.4-3.5); Lipase 29 U/L (8-78); Protein, Total 8.6 g/dL (6.0-8.3)
[2017-01-02 01:03] LABS: Bilirubin Moderate (Negative); Blood, Urine Negative (Negative); Glucose, Urine (Dipstick) Negative (Negative); Ketone, Urine 15 mg/dL (Negative); Nitrite Negative (Negative); Protein, Urine (Dipstick) 30 mg/dL (Neg-Trace)
[2017-01-02 01:05] LABS: Bacteria/HPF None Seen HPF (None Seen)
[2017-01-02 01:27] LABS: Hyaline Casts/LPF 4-6 HYALINE CAST LPF (0-3 Hyaline); RBC/HPF 0-3 HPF (0-3); WBC/HPF 0-3 HPF (0-3)
[2017-01-02] MEDS ORDERED: NS 0.9% w/ 20 MEQ KCL 1,000 ML IV SCH (03:30)
[2017-01-02] MEDS ORDERED: Promethazine HCl 25 MG/ML VIAL ONE (05:29)
[2017-01-02] MEDS ORDERED: Ondansetron HCl/PF 4 MG/2 ML Vial IVP PRN ×2 (05:47→07:22)
[2017-01-02] MEDS ORDERED: Loratadine 10 MG TAB PO PRN (07:22)
[2017-01-02] MEDS ORDERED: Sodium Chloride 0.65% Nasal 44 ML BOT EA NARE PRN (07:22)
[2017-01-02] MEDS ORDERED: Artificial Tears 18 DROP/0.9 ML EA EYE PRN (07:22)
[2017-01-02] MEDS ORDERED: Diabetic Tussin 200 MG/10 ML UDCUP PO PRN (07:22)
[2017-01-02] MEDS ORDERED: Zolpidem Tartrate 5 MG TAB PO PRN (07:22)
[2017-01-02] MEDS ORDERED: Eucerin (Mineral Oil/Petrolatum,White) 30 gm Jar TOP PRN (07:22)
[2017-01-02] MEDS ORDERED: hydrALAZINE 20 MG/ML VIAL SLOW IVP PRN (07:22)
[2017-01-02] MEDS ORDERED: Loperamide HCl 2 MG CAP PO PRN (07:22)
[2017-01-02] MEDS ORDERED: Ondansetron ODT 4 MG TAB PO PRN (07:22)
[2017-01-02] MEDS ORDERED: Mag-Al 1200 mg/1200 mg/30 ML UDCUP PO PRN (07:22)
[2017-01-02] MEDS ORDERED: Senokot 8.6 MG TAB PO PRN (07:22)
[2017-01-02] MEDS ORDERED: Acetaminophen 325 MG TAB PO PRN (07:22)
[2017-01-02] MEDS ORDERED: Milk Of Magnesia 30 ML UDCUP PO PRN (07:22)
[2017-01-02] MEDS: Enoxaparin Sodium 40 MG/0.4 ML SYRINGE SC SCH (09:21)
[2017-01-02] MEDS: Famotidine/PF 20 mg/2ml Vial SLOW IVP SCH ×2 (09:22→20:02)
[2017-01-02] MEDS: D5 0.9% NS w/ 20 mEq KCl 1,000 ML IV SCH ×3 (09:23→20:13)
--- NOTE | 2017-01-02 09:28 | RAD ---
ABDOMEN 2 VIEW WITH 1 VIEW CHEST XRAY: HISTORY: Vomiting. Emergency exam. COMPARISON: None. FINDINGS: Lungs are clear. No pneumothorax or effusion. Cardiac silhouette and mediastinal contours are norm al. No free air in the hemidiaphragm on the upright view. No dilated loops of large or small bowel. 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 Numerous phleboliths in the pelvis. No abnormal calcification projecting over the renal shadows. IMPRESSION: Clear lungs and no evidence of obstruction. POS: [facility]
--- NOTE | 2017-01-02 12:10 | HP ---
DATE OF ADMISSION: 01/02/2017 PRIMARY CARE PHYSICIAN: Temi Barrios M.D. REASON FOR ADMISSION: Poor p.o. intake, dehydration. HISTORY OF PRESENT ILLNESS: A 51-year-old female who has frontotemporal dementia and she has very l david history of poor p.o. intake. This patient has a diagnosis of frontotemporal dementia and she whitley d few admissions in our hospital for same problem. She has very unpredictable p.o. intake. She req uires total care from her and her is trying to insist her to eat and drink, but she is not eating and drinking enough and that turned into her dehydration and requires emergency room v isit versus admission in hospital. Back into 09/2016, patient had normal upper endoscopy. At that time, patient had similar problems w ith poor p.o. intake, but this patient does not have any real dysphagia, that is why PEG tube was no t placed. She was recently admitted in 12/2016. At that time, patient had similar dehydration and she required hydration with IV fluid and she was discharged home. Neurology does not have any new r ecommendations at that time. Patient's is tired of with the patient because she is not eating and drinking enough and tur sophia into her significant dehydration, lethargy and weakness. At this point, patient's has m debbie a decision that if PEG tube will be placed, then she can use that access alternatively when julia ent cannot have any oral intake. This patient also had recently fall because of dehydration and that led to proximal right humeral fr acture, required sling therapy. Last night, patient came to the ER again with nausea, vomiting as well as patient was not taking any thing by mouth and she was becoming more and more weak. REVIEW OF SYSTEMS: All review of systems tried to review with the patient, but unable to review at this point because of advanced dementia. PAST MEDICAL HISTORY: Frontotemporal dementia, history of rheumatoid arthritis in past, history of vestibular schwannoma, hypertension. PAST SURGICAL HISTORY: Cholecystectomy, right knee surgery, and ovarian cyst removal. PAST PSYCHIATRIC HISTORY: History of bipolar disorder. ALLERGIES: CELECOXIB and CODEINE. CURRENT HOME MEDICATIONS: The patient does not have any medication with her at this point, but julia ent was discharged from hospital on following medications; folic acid 1 mg p.o. daily, Remeron 15 mg p.o. at bedtime, and amlodipine 5 mg p.o. daily. SOCIAL HISTORY: Patient is . She lives at home with her . She has history of smokin g, but she does not have any history of alcohol or other illicit drug abuse. EMERGENCY ROOM COURSE: Patient was given Phenergan 25 mg, potassium chloride 20 mEq, Zofran 4 mg x2 , IV fluid 2 liter. FAMILY HISTORY: No strong family history of premature coronary artery disease, stroke or cancer. PHYSICAL EXAMINATION: VITAL SIGNS: On arrival, blood pressure 141/90, pulse 96, respiratory rate 22, temperature 98.2, sa turation 100% on room air, weight 73.0 kilograms. GENERAL: The patient is currently lethargic, sleepy, no obvious acute distress. HEAD: Normocephalic, atraumatic. EYES: Pupils round and reactive to light. Extraocular muscles intact. ENT: Dry mucous membranes, no oral lesions, no pharyngeal erythema, no exudate. NECK: Supple. Range of motion is normal. No meningeal signs of irritation. LUNGS: Clear to auscultation without any rhonchi or rales. CARDIAC: S1 and S2 regular without any murmur. ABDOMEN: Soft, bowel sounds present, nontender, nondistended. No organomegaly, no mass, no suprapu bic tenderness. BACK: Examination unremarkable, no CVA tenderness. EXTREMITIES: Upper extremity passive movements of all joints are normal. Lower extremity, no edema . Good peripheral pulsation. SKIN: No skin rash. HEMATOLOGICAL SYSTEM: No lymphadenopathy. NEUROLOGIC: The patient has baseline dementia, but she moves all 4 limbs. No focal neurological de ficit noted. SKIN: No skin rash. IMAGING AND SIGNIFICANT LABORATORY DATA: 1. X-ray abdomen shows constipation, no finding suggestive of small-bowel obstruction. Chest x-ray based on my review, no acute cardiopulmonary process. 2. CBC: WBC 12.6, hemoglobin 14.9, platelet 285. 3. BMP: Sodium 138, potassium 3.2, chloride 100, carbon dioxide 25, BUN 13, creatinine 1.14, gluco se 114, calcium 9.8, and lactic acid 2.3. 4. LFT: AST 27, ALT 24, alkaline phosphatase 108, albumin 3.5, lipase 29. Urinalysis, microscopic hematuria. 5. CT of the abdomen and pelvis done, result is pending. ASSESSMENT AND PLAN/IMPRESSION: 1. Dehydration. Patient has very poor p.o. intake. She has underlying frontotemporal dementia and her oral intake is very predictable as well as limited and that makes her dehydrated and gets alter ed mental status. At this point, patient will be given IV fluid with dextrose normal saline with IRAJ l at 100 mL per hour and we will repeat basic metabolic panel tomorrow. 2. Mild acute kidney injury due to volume depletion. The patient will be given IV fluid as mention ed above and we will repeat basic metabolic panel tomorrow. 3. Failure to thrive in an adult due to poor p.o. intake. This patient will need nutritional suppo rt. Main problem for her is her underlying advanced frontotemporal dementia and that makes her beha vioral problem and because of that, patient sometimes does not cooperative with oral intake. At thi s point to prevent her readmission in hospital and emergency room visit, she will require alternativ e options of oral intake and that is why I spoke with the patient's at bedside extensively a nd he is okay with percutaneous endoscopic gastrostomy tube placement. We will consult gastroentero logist for percutaneous endoscopic gastrostomy tube placement. 4. Frontotemporal dementia gradually getting worse and this patient will need supportive treatment. Patient is requiring total care from her . 5. Hypokalemia. We will replace potassium with IV fluid and we will repeat basic metabolic panel t omorrow. 6. Bipolar disorder. The patient is not on any specific treatment at this point. 7. Anxiety and depression. We will continue Remeron 15 mg p.o. at bedtime to stimulate her appetit e. 8. Hypertension. If blood pressure permits, then we will continue amlodipine 5 mg p.o. daily. 9. Deep venous thrombosis prophylaxis, Lovenox 40 mg subcu daily. 10. Gastrointestinal prophylaxis, Pepcid 20 mg IV b.i.d. 11. Code status: The patient is FULL CODE. Patient's is surrogate decision maker. Disposition plan based on clinical course. Plan of care extensively discussed with the patient in d etail.
--- NOTE | 2017-01-02 12:19 | CT ---
PRELIMINARY REPORT/[facility]/EMERGENCY AFTER-HOURS PROCEDURE: EXAM: CT Abdomen and Pelvis With Intravenous Contrast CLINICAL HISTORY: 51 years old, female; Pain and signs and symptoms; Nausea and vomiting; Abdominal pain; Generalized; Patient HX: Eval for possible obstruction; 51 yo f. Pt with n/v onset when woke up this morning and unable to tolerate po. Pt denies any fever. TECHNIQUE: Axial computed tomography images of the abdomen and pelvis with intravenous contrast. Coronal reformatted images were created and reviewed. CONTRAST: 70 mL of ISOVUE 370 administered intravenously. COMPARISON: No relevant prior studies available. FINDINGS: The lung bases are clear. Small hiatal hernia. There may be some mucosal/wall thickening involving the lower esophagus. This is nonspecific, but co uld represent evidence for esophagitis. Neoplasm not entirely excluded. Please correlate clinically. Prior cholecystectomy, no significant biliary tree dilation. Unremarkable appearance of the liver, spleen, kidneys, adrenal glands, and pancreas. PNo free air, ascites, or bowel distention. No evidence for abdominal aortic aneurysm. No retroperitoneal adenopathy. CT pelvis: The appendix is visualized and appears normal. There are no CT findings to strongly suggest diverticulitis. No abnormal mass or fluid collection in the pelvis. Prominent amount of stool in the rectum and distal sigmoid colon. The rectum is distended up to abou t 6 cm diameter. Please correlate clinically for possible fecal impaction. IMPRESSION: No free air or bowel distention. No evidence for bowel obstruction. Possible thickened mucosa/wall in the distal stomach, see above discussion. Hiatal hernia. Possibly some thickening of the lower esophagus, see above. Prominent amount of stool in the rectum and distal sigmoid colon, with some rectal distention. Please correlate clinically for possible fecal impaction. Normal appendix. No diverticulitis. Other findings discussed above. Thank you for allowing us to participate in the care of your patient. Dictated and Authenticated by: Earl Olmos MD 01/02/2017 3:49 AM Central Time ([place] \T\ [place]) FINAL REPORT CT ABDOMEN AND PELVIS WITH CONTRAST: HISTORY: Emergency exam. Abdominal pain. Nausea and vomiting. COMPARISON: CT from 10/11/15. FINDINGS: Abnormal hyperenhancement of the mucosa of the distal esophagus with small sliding hiatal hernia may be reflux disease. Small fat-containing umbilical hernia. Moderate stool burden within the rectal vault. Prior cholecystectomy. The spleen is enlarged measuring just under 13 cm. No hydronephros is. Appendix is normal. IMPRESSION: Findings and impression are concordant with the preliminary report. In addition, there is a small t o moderate size sliding hiatal hernia with abnormal hyperemia of the distal esophagus. This may be reflux related. Nonemergent endoscopy may be beneficial in this patient. POS: [facility]
[2017-01-02] MEDS ORDERED: ISOVUE-370 76%-LOCM 1 ML ONE (14:38)
[2017-01-02] MEDS: Mirtazapine 15 MG TAB PO SCH (20:09)
--- NOTE | 2017-01-03 00:03 | CON ---
DATE OF CONSULTATION: 01/02/[address] Sergo Lu. REASON FOR CONSULTATION: Persistent nausea and vomiting over the last 24 hours. HISTORY OF PRESENT ILLNESS: Ms. Alka Lott is a very pleasant 51-year-old female, hos pitalized because of recurrent nausea and vomiting over the last 24 hours. The patient has history of dementia and also history of bipolar disorder. The patient was seen in the room along with the ziyad malin's common-law , Mr. Orlando Mackenzie. The patient is nonverbal. However, tries to utter few words. When I asked her whether she has abdominal pain, she says no, but otherwise she is not v erbalizing anything. The patient's health had been going downhill slowly but stable over the last s everal months. The patient has been hospitalized several times off and on for various problems. nimisha has seen Dr. Gold in the last admission and had an EGD was done. The EGD was negative. Apparen tly, the patient did not want to have a PEG tube placed. The patient's tells me she has los t a lot of weight over the last few months. Over the last several months, at least 4 months, she is not taking enough by mouth. She does not eat any solid food, keeps in the mouth and spits out. e takes Ensure may be 1 can every 3 or 4 days. Even liquids, the intake is very minimal. The patie nt was actually fully functional until a few months ago when she was ambulating and was actually nay michael and all. She stopped talking about 3 months ago. The tells me that she does not verba lize and has not communicated over the last 3 or 4 months. The patient had seen Dr. Carpenter, neurologi , in the past. She was told to have dementia and she . The patient's tells me that she was okay until yesterday morning and then started having these recurrent nausea and vomiting con tinuously. She was vomiting mostly brownish material. The stools are black and not any blood in th e vomiting. The last time she had vomiting was 4:00 this morning. Since admission, she has had no nausea or vomiting. She has abdominal pain. She is on IV fluids at the present time. No other rel evant history. SOCIAL HISTORY: The patient lives with her common-law . She is a past smoker. No history o f alcohol intake. MEDICAL ILLNESSES: 1. Dementia. 2. Hypertension. 3. Bipolar disorder. 4. Rheumatoid arthritis. 5. Vestibular schwannoma. 6. Status post cholecystectomy. 7. Right knee surgery. 8. Ovarian cyst removal. ALLERGIES: CELEBREX and CODEINE. MEDICATIONS: Include folic acid, Remeron and amlodipine. Not obtainable as she is nonverbal. REVIEW OF SYSTEMS: TELEVISION NEWS VIDEO EDITOR: Aphasia, last 3 months with history of dementia. Constitutional: N o history of fever. Reports a history of weight loss and not able to eat or drink anything for the last several months and weight loss. Cardiovascular System: No chest pain, no palpitation, no orth opnea or PND. Respiratory System: No history of chronic cough, hemoptysis or dyspnea. Neuropsychi atric: History of bipolar disorder. PHYSICAL EXAMINATION: GENERAL: She appears very comfortable. She is in no distress. She does not verbalize, and she abebe s not really communicate. VITAL SIGNS: Her pulse is 90 and blood pressure 140/90. HEENT: Conjunctivae clear. NECK: Supple. No adenitis or thyromegaly noted. CARDIOVASCULAR SYSTEM: First and second heart sounds normal. LUNGS: Clear to auscultation. ABDOMEN: Soft to palpate. Abdomen is nontender. No organomegaly or masses. EXTREMITIES: Reveal no edema. The patient has had a right femur fracture recently and movement of the right arm is poor. IMAGING DATA: The CAT scan of the abdomen shows some thickening of the esophageal wall and also hia tus hernia. She also has small umbilical hernia. LABORATORY DATA: From today, CBC: WBC 12,600, hemoglobin 14.9, hematocrit 45.8, platelet count is 285,000, polymorphs 65, lymphocytes 25 and monocytes 8. Serum chemistries: Sodium 138, potassium 3 .2, chloride 100, bicarbonate 25, BUN is 13, creatinine 1.14 mg percent, glucose 114, calcium 9.2, b ilirubin is 1, AST 27, ALT 24, alkaline phosphatase 108, globulin 5.5, protein 8.6 and lipase 29. CLINICAL IMPRESSION: A 51-year-old female with history of dementia, history of bipolar di sorder. The patient is not communicating over the last 3 months. Before that she was talking very well. She was also pretty functional before. She has a history of dementia. Her oral intake is ve ry, very poor over the last few months. Her tells me she drinks 1 can of Ensure may be once every 3 or 4 days and even liquids however, she does not drink very much. PLAN: I decided to have a long talk with Mr. Orlando Mackenzie who is her common-law . I explai sophia to him that there are not too many options available except to proceed with the PEG tube placeme nt. When I asked the patient whether she wanted to have tube placement, she says no. That is the o nly word she utters. Anyway, I did talk to the . I explained to him about the need for PEG tube placement. We will talk to her later on today and convince her to have PEG tube. If she is ag reeable, I will plan for PEG tube tomorrow. In the meantime, would try full liquid diet. Also, she can take some Ensure 1 can three times a day.
[2017-01-03 04:44] LABS: #Basophils 0.1 thou/uL (0.0-0.2); #Eosinphils 0.3 thou/uL (0.0-0.7); #Lymphocytes 3.2 thou/uL (1.20-3.40); #Monocytes 0.7 thou/uL (0.11-0.59); #Neutrophils 3.5 thou/uL (1.40-6.50); %Basophils 0.7 % (0.0-1.0); %Eosinophils 3.3 % (0.0-10.0); %Lymphocytes 42.1 % (21.0-51.0); %Monocytes 8.7 % (0.0-10.0); Hematocrit 42.1 % (36.0-47.0); Mean Platelet Volume 11.2 fL (7.4-10.4); Red Blood Cell (RBC) Count 4.88 mill/uL (4.20-5.40); White Blood Cell (WBC) Count 7.7 thou/uL (4.8-10.8)
[2017-01-03 05:14] LABS: Anion Gap 11 mmol/L (10-20); BUN (Urea Nitrogen) 4 mg/dL (9.8-20.1); Calc. Creatinine Clearance 107 mL/min (70-130); Calcium 8.1 mg/dL (7.8-10.44); Carbon Dioxide 23 mmol/L (22-29); Chloride 110 mmol/L (98-107); Estimated GFR-MDRD 88
[2017-01-03] MEDS: Folic Acid 1 MG TAB PO SCH (08:01)
[2017-01-03] MEDS: Amlodipine 5 MG TAB PO SCH (08:01)
[2017-01-03] MEDS: Famotidine/PF 20 mg/2ml Vial SLOW IVP SCH ×2 (08:04→20:09)
[2017-01-03] MEDS: Enoxaparin Sodium 40 MG/0.4 ML SYRINGE SC SCH (08:04)
--- NOTE | 2017-01-03 09:38 | PDOC.PN ---
- Subjective Encounter Start Date: 01/03/17 Encounter Start Time: 09:35 Subjective: pt is non verbal & care discussed w Significant other - Objective Resuscitation Status: Resuscitation Status FULL:Full Resuscitation MAR Reviewed: Yes Vital Signs & Weight: Vital Signs (12 hours) Temp Pulse Resp BP BP BP Pulse Ox 01/03/17 08:01 79 146/80 H 01/03/17 08:00 98.3 F 79 20 146/80 H 97 01/03/17 04:54 98.3 F 82 16 130/73 01/03/17 01:30 98.3 F 80 16 99/65 97 Weight Weight 160 lb 10 oz Result Diagrams: 01/03/17 03:36 01/03/17 03:36 Additional Labs: Laboratory Tests 01/01/17 01/01/17 01/01/17 22:23 22:23 22:23 WBC 12.6 H Creatinine 1.14 H Lactic Acid 2.3 H 01/02/17 01/03/17 01/03/17 02:11 03:36 03:36 WBC 7.7 Creatinine 0.70 Lactic Acid 1.8 Phys Exam - Physical Examination Constitutional: NAD dishevelled.awake but does not responds to conversation HEENT: PERRLA, moist MMs, sclera anicteric, oral pharynx no lesions Neck: no nodes, no JVD, supple, full ROM Respiratory: no wheezing, no rales, no rhonchi, clear to auscultation bilateral Cardiovascular: RRR, no significant murmur Gastrointestinal: soft, non-tender, no distention, positive bowel sounds Musculoskeletal: no edema, pulses present Neurological: non-focal, normal sensation, moves all 4 limbs Deviation from normal: flat affect Skin: no rash Dx/Plan (1) Dehydration Code(s): E86.0 - DEHYDRATION Status: Acute (2) Failure to thrive in adult Status: Acute (3) Bipolar disorder Code(s): F31.9 - BIPOLAR DISORDER, UNSPECIFIED Status: Chronic (4) Dementia Code(s): F03.90 - UNSPECIFIED DEMENTIA WITHOUT BEHAVIORAL DISTURBANCE Status: Chronic (5) Acute kidney failure Status: Resolved - Plan plan discussed w/ family, PT/OT, health care social worker, out of bed/ambulate, DVT proph w/SCDs Pt still not eating or drinking any.rapidly progressive dementia -: plans for PEG tomorrow am by GI-appreciate input. -: cont IVF for now. am labs. -: Renal Fx improved.supportive care. fall precautions * . Review of Systems - Review of Systems Other: unable to obtain as pt is non verbal - Medications/Allergies Allergies/Adverse Reactions: Allergies Allergy/AdvReac Type Severity Reaction Status Date / Time codeine Allergy Verified 12/11/16 12:26 latex Allergy Verified 01/02/17 06:00 meperidine HCl [From Demerol] Allergy Verified 12/11/16 12:26 Medications: Current Medications Acetaminophen (Tylenol) 650 mg PO Q4H PRN PRN Reason: Headache/Fever or Pain Al Hydroxide/Mg Hydroxide (Maalox) 30 ml PO Q6H PRN PRN Reason: Heartburn or Indigestion Amlodipine Besylate (Norvasc) 5 mg PO DAILY [facility] Last Admin: 01/03/17 08:01 Dose: 5 mg Artificial Tears (Tears Naturale) 0 drop EA EYE PRN PRN PRN Reason: Dry Eyes Enoxaparin Sodium (Lovenox) 40 mg SC 0900 [facility] Last Admin: 01/03/17 08:04 Dose: 40 mg Famotidine (Pepcid) 20 mg SLOW IVP Q12HR [facility] Last Admin: 01/03/17 08:04 Dose: 20 mg Folic Acid (Folvite) 1 mg PO DAILY [facility] Last Admin: 01/03/17 08:01 Dose: 1 mg Guaifenesin (Robitussin Sf) 200 mg PO Q4H PRN PRN Reason: Cough Hydralazine HCl (Apresoline) 10 mg SLOW IVP Q4H PRN PRN Reason: Systolic BP > 180 Potassium Chloride/Dextrose/Sod Cl (D5 0.9% Ns W/ 20 Meq Kcl) 1,000 mls @ 100 mls/hr IV .Q10H [facility] Last Admin: 01/02/17 20:13 Dose: 1,000 mls Loperamide HCl (Imodium) 2 mg PO PRN PRN PRN Reason: Diarrhea/Loose Stools Loratadine (Claritin) 10 mg PO DAILYPRN PRN PRN Reason: Sinus Symptoms Magnesium Hydroxide (Milk Of Magnesium) 30 ml PO DAILYPRN PRN PRN Reason: Constipation Mineral Oil/White Petrolatum (Eucerin Cream) 0 gm TOP BIDPRN PRN PRN Reason: Dry Skin Mirtazapine (Remeron) 15 mg PO HS [facility] Last Admin: 01/02/17 20:09 Dose: 15 mg Ondansetron HCl (Zofran Odt) 4 mg PO Q6H PRN PRN Reason: Nausea/Vomiting Ondansetron HCl (Zofran) 4 mg IVP Q6H PRN PRN Reason: Nausea/Vomiting Senna (Senokot) 2 tab PO HSPRN PRN PRN Reason: Constipation Sodium Chloride ([place] Nasal [place] 0.65%) 0 ml EA NARE QIDPRN PRN PRN Reason: Nasal Congestion Zolpidem Tartrate (Ambien) 5 mg PO HSPRN PRN PRN Reason: Insomnia
[2017-01-03] MEDS ORDERED: Bisacodyl 10 MG SUPP PR PRN (13:46)
--- NOTE | 2017-01-03 13:58 | PRG ---
DATE OF SERVICE: 01/03/2017 Ms. Lott is still not eating. The significant other has decided to go ahead and proceed with PEG tube placement. PHYSICAL EXAMINATION: VITAL SIGNS: Temperature is 98, pulse 76, blood pressure 149/80. LUNGS: Clear. ABDOMEN: Soft, nontender. LABORATORY STUDIES: White count 7.7, hemoglobin 13, platelet count is 182. Basic metabolic profile is normal. ASSESSMENT: Anorexia with poor p.o. intake. The patient has been noncommunicative over the past fe w months. Her dementia is progressing. She had a normal EGD. Last admission she had a normal CAT scan on 01/02/2017. A moderate amount of stool in the rectum with probable impaction. RECOMMENDATIONS: 1. Bowel regimen. 2. Manual disimpaction. 3. The patient's significant other apparently has talked with the primary service and the nurses an d requested a PEG tube placement. We can proceed with that tomorrow.
[2017-01-03] MEDS ORDERED: Fleet Enema 133 ML BOT PR SCH (14:00)
[2017-01-03 14:39] VITALS: BMI 28.3
[2017-01-03] MEDS: D5 0.9% NS w/ 20 mEq KCl 1,000 ML IV SCH (14:59)
[2017-01-03] MEDS: Mirtazapine 15 MG TAB PO SCH (20:09)
[2017-01-04] MEDS: D5 0.9% NS w/ 20 mEq KCl 1,000 ML IV SCH ×3 (01:49→20:14)
[2017-01-04 05:17] LABS: Anion Gap 14 mmol/L (10-20); BUN (Urea Nitrogen) Less than 4 mg/dL (9.8-20.1); Calc. Creatinine Clearance 102 mL/min (70-130); Calcium 8.4 mg/dL (7.8-10.44); Carbon Dioxide 16 mmol/L (22-29); Chloride 112 mmol/L (98-107); Estimated GFR-MDRD 83
[2017-01-04] MEDS: Amlodipine 5 MG TAB PO SCH (07:44)
[2017-01-04] MEDS: Famotidine/PF 20 mg/2ml Vial SLOW IVP SCH ×2 (07:44→20:14)
[2017-01-04] MEDS: Enoxaparin Sodium 40 MG/0.4 ML SYRINGE SC SCH (07:44)
[2017-01-04] MEDS: Folic Acid 1 MG TAB PO SCH (07:45)
--- NOTE | 2017-01-04 09:49 | PDOC.PN ---
- Subjective Encounter Start Date: 01/04/17 Encounter Start Time: 09:48 Subjective: s/p PEG.tolerated well.denies any AP - Objective Resuscitation Status: Resuscitation Status FULL:Full Resuscitation MAR Reviewed: Yes Vital Signs & Weight: Vital Signs (12 hours) Pulse BP 01/04/17 07:44 80 127/82 Weight Admit Weight 160 lb Weight 160 lb Result Diagrams: 01/03/17 03:36 01/04/17 03:35 Additional Labs: Laboratory Tests 01/01/17 01/03/17 01/04/17 22:23 03:36 03:35 Creatinine 1.14 H 0.70 0.73 Phys Exam - Physical Examination Constitutional: NAD non conversational HEENT: PERRLA, moist MMs, sclera anicteric, oral pharynx no lesions Neck: no nodes, no JVD, supple, full ROM Respiratory: no wheezing, no rales, no rhonchi Cardiovascular: RRR, no significant murmur Gastrointestinal: soft, non-tender, no distention, positive bowel sounds PEG in place Musculoskeletal: no edema, pulses present Neurological: moves all 4 limbs Psychiatric: normal affect Deviation from normal: does not talk Skin: no rash Dx/Plan (1) Dehydration Code(s): E86.0 - DEHYDRATION Status: Acute Comment: due to poor Po intake (2) Failure to thrive in adult Status: Acute (3) Bipolar disorder Code(s): F31.9 - BIPOLAR DISORDER, UNSPECIFIED Status: Chronic (4) Dementia Code(s): F03.90 - UNSPECIFIED DEMENTIA WITHOUT BEHAVIORAL DISTURBANCE Status: Chronic (5) Acute kidney failure Status: Resolved (6) S/P percutaneous endoscopic gastrostomy (PEG) tube placement Code(s): Z93.1 - GASTROSTOMY STATUS Status: Acute - Plan PT/OT, social media editor, out of bed/ambulate, DVT proph w/SCDs Start TF in 8 hours w daily lytes check for re-feeding syndrome. -: Appreciate GI input. -: hemodynamically stable. Home meds as below. * . Review of Systems - Review of Systems Other: can not be obtained reliably as pt does not reply to Qs - Medications/Allergies Allergies/Adverse Reactions: Allergies Allergy/AdvReac Type Severity Reaction Status Date / Time codeine Allergy Verified 12/11/16 12:26 latex Allergy Verified 01/02/17 06:00 meperidine HCl [From Demerol] Allergy Verified 12/11/16 12:26 Medications: Current Medications Acetaminophen (Tylenol) 650 mg PO Q4H PRN PRN Reason: Headache/Fever or Pain Al Hydroxide/Mg Hydroxide (Maalox) 30 ml PO Q6H PRN PRN Reason: Heartburn or Indigestion Amlodipine Besylate (Norvasc) 5 mg PO DAILY [facility] Last Admin: 01/04/17 07:44 Dose: Not Given Artificial Tears (Tears Naturale) 0 drop EA EYE PRN PRN PRN Reason: Dry Eyes Bisacodyl (Dulcolax) 10 mg [place] DAILYPRN PRN PRN Reason: Constipation Last Admin: 01/03/17 14:59 Dose: 10 mg Enoxaparin Sodium (Lovenox) 40 mg SC 0900 [facility] Last Admin: 01/04/17 07:44 Dose: Not Given Famotidine (Pepcid) 20 mg SLOW IVP Q12HR [facility] Last Admin: 01/04/17 07:44 Dose: 20 mg Folic Acid (Folvite) 1 mg PO DAILY [facility] Last Admin: 01/04/17 07:45 Dose: Not Given Guaifenesin (Robitussin Sf) 200 mg PO Q4H PRN PRN Reason: Cough Hydralazine HCl (Apresoline) 10 mg SLOW IVP Q4H PRN PRN Reason: Systolic BP > 180 Potassium Chloride/Dextrose/Sod Cl (D5 0.9% Ns W/ 20 Meq Kcl) 1,000 mls @ 100 mls/hr IV .Q10H [facility] Last Admin: 01/04/17 01:49 Dose: 1,000 mls Loperamide HCl (Imodium) 2 mg PO PRN PRN PRN Reason: Diarrhea/Loose Stools Loratadine (Claritin) 10 mg PO DAILYPRN PRN PRN Reason: Sinus Symptoms Magnesium Hydroxide (Milk Of Magnesium) 30 ml PO DAILYPRN PRN PRN Reason: Constipation Mineral Oil/White Petrolatum (Eucerin Cream) 0 gm TOP BIDPRN PRN PRN Reason: Dry Skin Mirtazapine (Remeron) 15 mg PO HS [facility] Last Admin: 01/03/17 20:09 Dose: 15 mg Ondansetron HCl (Zofran Odt) 4 mg PO Q6H PRN PRN Reason: Nausea/Vomiting Ondansetron HCl (Zofran) 4 mg IVP Q6H PRN PRN Reason: Nausea/Vomiting Senna (Senokot) 2 tab PO HSPRN PRN PRN Reason: Constipation Sodium Chloride ([place] Nasal [place] 0.65%) 0 ml EA NARE QIDPRN PRN PRN Reason: Nasal Congestion Sodium Chloride (Flush - Normal Saline) 10 ml IVF PRN PRN PRN Reason: Saline Flush Zolpidem Tartrate (Ambien) 5 mg PO HSPRN PRN PRN Reason: Insomnia
[2017-01-04] MEDS ORDERED: CEFAZOLIN/Water 2 GM/20 ML SYRINGE ONE (13:45)
[2017-01-04] MEDS ORDERED: Lidocaine 1% PF 5 ML VIAL ONE (14:44)
[2017-01-04] MEDS ORDERED: Ondansetron HCl/PF 4 MG/2 ML Vial IVP PRN (14:51)
--- NOTE | 2017-01-04 15:22 | OP ---
PREOPERATIVE DIAGNOSIS: Oropharyngeal dysphagia secondary to dementia. DESCRIPTION OF THE PROCEDURE: After informed consent was obtained, the patient placed in the supine position. Anesthesia was administered per the Anesthesia Department. Forward-viewing endoscope wa s inserted into the esophagus under direct visualization with ease and passed to the second portion of the duodenum with ease. Second portion of the duodenum was normal. The duodenal bulb was normal . The pylorus, antrum, body, fundus, and cardia were normal. Retroflexion in the stomach was catherine l. The esophagus showed grade D reflux esophagitis. The area was prepped and draped in usual therese r. Anesthesia was applied with 1% lidocaine without epinephrine. A needle was inserted through the abdominal wall into the gastric lumen and wire was passed, snared, and brought out of the mouth. T he PEG tube was attached and brought through the abdominal wall after a small incision was made. Re insertion of the endoscope showed the peg bumper to be in good position. ASSESSMENT: Successful percutaneous endoscopic gastrostomy. RECOMMENDATIONS: Begin tube feedings in 8 hours.
[2017-01-04] MEDS: Mirtazapine 15 MG TAB PO SCH (20:15)
[2017-01-05 05:28] LABS: Anion Gap 10 mmol/L (10-20); BUN (Urea Nitrogen) Less than 4 mg/dL (9.8-20.1); Calc. Creatinine Clearance 106 mL/min (70-130); Calcium 8.3 mg/dL (7.8-10.44); Carbon Dioxide 21 mmol/L (22-29); Chloride 108 mmol/L (98-107); Estimated GFR-MDRD 88; Magnesium 1.2 mg/dL (1.6-2.6)
[2017-01-05] MEDS: D5 0.9% NS w/ 20 mEq KCl 1,000 ML IV SCH ×2 (08:14→19:55)
[2017-01-05] MEDS: Pantoprazole 40 MG GRANULES PACKET PER TUBE SCH (08:15)
[2017-01-05] MEDS: Enoxaparin Sodium 40 MG/0.4 ML SYRINGE SC SCH (08:15)
[2017-01-05] MEDS: Folic Acid 1 MG TAB PO SCH (08:15)
[2017-01-05] MEDS: Amlodipine 5 MG TAB PO SCH (08:15)
[2017-01-05] MEDS: Famotidine/PF 20 mg/2ml Vial SLOW IVP SCH ×2 (08:16→19:54)
[2017-01-05] MEDS ORDERED: Magnesium Sulfate 4 GM in Sodium Chloride 0.9% 250 ML 250 ML IVPB SCH (09:15)
--- NOTE | 2017-01-05 14:23 | PDOC.PN ---
- Subjective Encounter Start Date: 01/05/17 Encounter Start Time: 07:45 -: old records requested/rev Patient seen and examined. No new complaints. No overnight events - Objective Resuscitation Status: Resuscitation Status FULL:Full Resuscitation MAR Reviewed: Yes Vital Signs & Weight: Vital Signs (12 hours) Temp Pulse Resp BP BP Pulse Ox 01/05/17 08:20 98.6 F 84 16 141/84 H 97 01/05/17 08:15 84 141/85 H 01/05/17 08:00 98.6 F 84 16 97 01/05/17 05:01 97.6 F 85 18 133/83 97 01/05/17 03:23 97 Weight Admit Weight 160 lb Weight 160 lb I&O: 01/04/17 01/05/17 01/06/17 06:59 06:59 06:59 Intake Total 100 115 Balance 100 115 Result Diagrams: 01/03/17 03:36 01/05/17 04:09 Phys Exam - Physical Examination Constitutional: NAD HEENT: PERRLA, moist MMs, sclera anicteric Neck: no JVD, supple Respiratory: no wheezing, no rales, no rhonchi Cardiovascular: RRR, no significant murmur, no rub Gastrointestinal: soft, non-tender, no distention, positive bowel sounds peg+ Musculoskeletal: no edema, pulses present Neurological: non-focal, normal sensation, moves all 4 limbs Psychiatric: normal affect Skin: no rash, normal turgor Dx/Plan (1) S/P percutaneous endoscopic gastrostomy (PEG) tube placement Code(s): Z93.1 - GASTROSTOMY STATUS Status: Acute (2) Dementia Code(s): F03.90 - UNSPECIFIED DEMENTIA WITHOUT BEHAVIORAL DISTURBANCE Status: Chronic (3) Dehydration Code(s): E86.0 - DEHYDRATION Status: Acute Comment: due to poor Po intake (4) Failure to thrive in adult Status: Acute (5) Bipolar disorder Code(s): F31.9 - BIPOLAR DISORDER, UNSPECIFIED Status: Chronic (6) Rheumatoid arthritis Code(s): M06.9 - RHEUMATOID ARTHRITIS, UNSPECIFIED Status: Chronic (7) Vestibular schwannoma Code(s): 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 Review of Systems - Review of Systems Other: unable to review as pt has dementia - Medications/Allergies Allergies/Adverse Reactions: Allergies Allergy/AdvReac Type Severity Reaction Status Date / Time codeine Allergy Verified 12/11/16 12:26 latex Allergy Verified 01/02/17 06:00 meperidine HCl [From Demerol] Allergy Verified 12/11/16 12:26 Medications: Current Medications Acetaminophen (Tylenol) 650 mg PO Q4H PRN PRN Reason: Headache/Fever or Pain Al Hydroxide/Mg Hydroxide (Maalox) 30 ml PO Q6H PRN PRN Reason: Heartburn or Indigestion Amlodipine Besylate (Norvasc) 5 mg PO DAILY [facility] Last Admin: 01/05/17 08:15 Dose: 5 mg Artificial Tears (Tears Naturale) 0 drop EA EYE PRN PRN PRN Reason: Dry Eyes Bisacodyl (Dulcolax) 10 mg WV DAILYPRN PRN PRN Reason: Constipation Last Admin: 01/03/17 14:59 Dose: 10 mg Enoxaparin Sodium (Lovenox) 40 mg SC 0900 [facility] Last Admin: 01/05/17 08:15 Dose: 40 mg Famotidine (Pepcid) 20 mg SLOW IVP Q12HR [facility] Last Admin: 01/05/17 08:16 Dose: 20 mg Folic Acid (Folvite) 1 mg PO DAILY [facility] Last Admin: 01/05/17 08:15 Dose: 1 mg Guaifenesin (Robitussin Sf) 200 mg PO Q4H PRN PRN Reason: Cough Hydralazine HCl (Apresoline) 10 mg SLOW IVP Q4H PRN PRN Reason: Systolic BP > 180 Potassium Chloride/Dextrose/Sod Cl (D5 0.9% Ns W/ 20 Meq Kcl) 1,000 mls @ 100 mls/hr IV .Q10H [facility] Last Admin: 01/05/17 08:14 Dose: 1,000 mls Loperamide HCl (Imodium) 2 mg PO PRN PRN PRN Reason: Diarrhea/Loose Stools Loratadine (Claritin) 10 mg PO DAILYPRN PRN PRN Reason: Sinus Symptoms Magnesium Hydroxide (Milk Of Magnesium) 30 ml PO DAILYPRN PRN PRN Reason: Constipation Mineral Oil/White Petrolatum (Eucerin Cream) 0 gm TOP BIDPRN PRN PRN Reason: Dry Skin Mirtazapine (Remeron) 15 mg PO HS [facility] Last Admin: 01/04/17 20:15 Dose: 15 mg Ondansetron HCl (Zofran Odt) 4 mg PO Q6H PRN PRN Reason: Nausea/Vomiting Ondansetron HCl (Zofran) 4 mg IVP Q6H PRN PRN Reason: Nausea/Vomiting Pantoprazole Sodium (Protonix) 40 mg PER TUBE DAILY [facility] Last Admin: 01/05/17 08:15 Dose: 40 mg Senna (Senokot) 2 tab PO HSPRN PRN PRN Reason: Constipation Sodium Chloride ([place] Nasal [place] 0.65%) 0 ml EA NARE QIDPRN PRN PRN Reason: Nasal Congestion Sodium Chloride (Flush - Normal Saline) 10 ml IVF PRN PRN PRN Reason: Saline Flush Zolpidem Tartrate (Ambien) 5 mg PO HSPRN PRN PRN Reason: Insomnia
[2017-01-05] MEDS: Mirtazapine 15 MG TAB PO SCH (19:54)
--- NOTE | 2017-01-06 00:32 | PRG ---
DATE OF SERVICE: 01/05/2017 SUBJECTIVE: Ms. Lott had a PEG tube placed yesterday. She has done well with that. She is tole rating tube feeds. OBJECTIVE: VITAL SIGNS: Temperature is 98, pulse 84, blood pressure 141/84. GENERAL: The patient is not very communicative, but appears to be in no distress. Her significant other is at the bedside, discussed the fact that she can take p.o. if she would like to and there is no swallowing defects identified. ABDOMEN: Soft and nontender. PEG tube site is warm and dry with no erythema or exudate. Bumper wa s loosened. LABORATORY DATA: Sodium 135, potassium 3.7, BUN and creatinine are 4 and 0.7, glucose 88, magnesium 1.2, phosphorus 3. ASSESSMENT: 1. Hypomagnesemia, replaced. 2. Anorexia with poor p.o. intake. This is felt related to her bipolar disorder and some mild harshil ntia. The previous endoscopies have been negative. For ongoing weight loss, they decided to procee d with PEG tube placement. She is only drinking a can every 3-4 days orally. 3. Bipolar disorder. 4. History of hypertension. 5. History of vestibular schwannoma. 6. Evaluation with CAT scan of abdomen and pelvis on 02/20 was normal except for possible mucosal t hickening in the stomach, which did not turntable engineer to be problem on EGD. Previous tox screen in [facility] was negative. Evaluation for lipase, B1, B6, B12, all previously normal. Cortisol normal. Ce liac evaluation, ANCA evaluation, ZAKI are all negative, RPR nonreactive. PLAN: Continue tube feeds. RECOMMENDATIONS: Would check a lead level and ammonia level as well. Otherwise, we would defer fur ther workup to Neurology and a psychiatrist.
[2017-01-06] MEDS: D5 0.9% NS w/ 20 mEq KCl 1,000 ML IV SCH (01:05)
[2017-01-06 04:26] LABS: Anion Gap 8 mmol/L (10-20); BUN (Urea Nitrogen) 6 mg/dL (9.8-20.1); Calc. Creatinine Clearance 110 mL/min (70-130); Calcium 7.5 mg/dL (7.8-10.44); Carbon Dioxide 22 mmol/L (22-29); Chloride 109 mmol/L (98-107); Estimated GFR-MDRD Greater than 90; Magnesium 2.1 mg/dL (1.6-2.6); Phosphorus 2.7 mg/dL (2.3-4.7)
[2017-01-06 08:14] VITALS: BP 138/82; TEMP 99.2
[2017-01-06] MEDS: Amlodipine 5 MG TAB PO SCH (10:10)
[2017-01-06] MEDS: Folic Acid 1 MG TAB PO SCH (10:10)
[2017-01-06] MEDS: Famotidine/PF 20 mg/2ml Vial SLOW IVP SCH (10:15)
[2017-01-06] MEDS: Enoxaparin Sodium 40 MG/0.4 ML SYRINGE SC SCH (10:15)
[2017-01-06] MEDS: Pantoprazole 40 MG GRANULES PACKET PER TUBE SCH (10:15)
--- NOTE | 2017-01-06 11:09 | DIS ---
PRIMARY CARE PHYSICIAN: [facility] call admission. DATE OF ADMISSION: 01/02/2017 DATE OF DISCHARGE: 01/06/2017 DISCHARGE DISPOSITION: Home. PRIMARY DISCHARGE DIAGNOSES: 1. Failure to thrive in an adult with poor p.o. intake. 2. Status post percutaneous endoscopic gastrostomy tube placement. 3. Hypomagnesemia. 4. Dehydration. SECONDARY DISCHARGE DIAGNOSES: Frontotemporal dementia, hypertension, bipolar disorder, history of rheumatoid arthritis, vestibular schwannoma. PRIMARY PROCEDURE/OPERATION: PEG tube placement. RADIOLOGICAL INVESTIGATION: Abdomen and pelvis CT scan unremarkable. X-ray abdomen with chest x-ra y unremarkable. SIGNIFICANT LABS: Hemoglobin 13.1, creatinine 0.68. Electrolytes normal. Ammonia 26. Urinalysis unremarkable. DISCHARGE MEDICATIONS: Medication will be given via PEG tube. Amlodipine 5 mg daily, vitamin B12 1 000 mcg daily, Pepcid 20 mg twice daily, folic acid 1 mg daily. Latuda 20 mg daily, Remeron 15 mg da nevin, multivitamin 1 tablet daily. CONTRAINDICATIONS: None. CODE STATUS: Full code. INPATIENT CONSULTANTS: Dr. Gold and Dr. Johns was consulted while in hospital. Dr. Mirza did a PEG tube placement. TEST RESULTS PENDING ON DISCHARGE: None. ALLERGIES: CODEINE, LATEX, DEMEROL. DISCHARGE PLAN: Post hospital, the patient is discharged home and the patient will follow up with [facility] physician. HOSPITAL COURSE: A 51-year-old female who has frontotemporal dementia and she had been evaluated by a neurologist in the past completely. She has unpredictable p.o. intake and her has to str uggle to give her oral intake and because of this she gets admitted recurrently for dehydration and abnormal electrolytes. This time she had a very similar presentation and to prevent recurrent admis abebe, the patient's agreed with PEG tube placement. We consulted the cable technician and they did a PEG tube placement. After that we started tube feeding. The patient is tolerating tube feeding well. We consulted dietitian to change to bolus feeding and patient's was educated about PEG tube care and tube feeding. At this point, the patient is hemodynamically stable. She will follow up with primary care physicia n and neuropsychology medical consultant as needed. The patient is seen and examined at bedside today. Review of systems is not possible from her [facility] se of dementia. PHYSICAL EXAMINATION: VITAL SIGNS: Currently temperature 99.2, pulse 82, respiratory rate 16, saturation 97%, blood press ure 138/82, weight 161 pounds. GENERAL: The patient is arousable, alert, no obvious acute distress. HEAD: Normocephalic, atraumatic. LUNGS: Clear. CARDIAC: S1, S2 regular without any murmur. ABDOMEN: Soft and benign. EXTREMITIES: No edema. NEUROLOGIC: Nonfocal examination. Overall, the patient is medically stable for discharge today.
[2017-01-07 11:23] LABS: Lead-Whole Blood 2 ug/dL (0-19)
== END 2017-01-06 15:17 | disposition home or self-care (01) | DRG 683 ==
LOC: ERS 20:17 → T4-A 01-02 05:39
PROVIDERS: ADMIT Internal Medicine Infectious Disease; ATTEND Internal Medicine Infectious Disease
PROC: 0DH63UZ Insertion of Feeding Device into Stomach, Percutaneous Approach (ICD-10-PCS; principal; 2017-01-06)
DX: N17.9 Acute kidney failure, unspecified (principal); F02.81 Dementia in other diseases classified elsewhere, unspecified severity, with behavioral disturbance; R13.12 Dysphagia, oropharyngeal phase; G31.09 Other frontotemporal neurocognitive disorder; E83.42 Hypomagnesemia; R62.7 Adult failure to thrive; E86.0 Dehydration; E87.6 Hypokalemia; F31.9 Bipolar disorder, unspecified; F41.9 Anxiety disorder, unspecified; F32.9 Major depressive disorder, single episode, unspecified; I10 Essential (primary) hypertension; R63.0 Anorexia; M06.9 Rheumatoid arthritis, unspecified; D33.3 Benign neoplasm of cranial nerves; Z68.28 Body mass index [BMI] 28.0-28.9, adult
CPT/HCPCS: 36415; 36416; 51701; 74022; 74177; 80048; 80053; 81003; 81015; 82140; 83605; 83655; 83690; 83735; 84100; 85025; 96361; 96365; 96366; 96375; 96376; A4353; J1650; J2001; J2405; J2550; J3475; J7050; S0028

== ENCOUNTER 2017-06-03 07:17 | Emergency (ER) | payer MEDICAID | END 2017-06-03 08:14 | disposition home or self-care (01) | LOC: ERS 07:17 | DX: K94.21 Gastrostomy hemorrhage (principal); I10 Essential (primary) hypertension; F41.9 Anxiety disorder, unspecified; F31.9 Bipolar disorder, unspecified; Z87.891 Personal history of nicotine dependence | CPT/HCPCS: 99282 ==

== ENCOUNTER 2017-08-06 11:36 | Emergency (ER) | payer MEDICAID ==
[~2017-08-06 11:36] MED LIST: ISOVUE-370 76%-LOCM 1 ML ONE
[2017-08-06 12:16] LABS: #Eosinphils 0.2 thou/uL (0.0-0.7); #Lymphocytes 2.3 thou/uL (1.20-3.40); #Monocytes 0.5 thou/uL (0.11-0.59); #Neutrophils 3.4 thou/uL (1.40-6.50); %Basophils 0.6 % (0.0-1.0); %Eosinophils 3.2 % (0.0-10.0); %Lymphocytes 36.2 % (21.0-51.0); %Monocytes 7.3 % (0.0-10.0); %Neutrophils 52.8 % (42.0-75.0); Hemoglobin 12.7 g/dL (12.0-16.0); Mean Corpuscular HGB CONC 32.1 g/dL (32.0-36.0); Mean Corpuscular Hemoglobin 28.8 pg (27.0-31.0); Mean Corpuscular Volume 89.8 fl (81.0-99.0); Platelet Count 271 thou/uL (130-400); RBC Distribution Width 12.7 % (11.5-14.5); White Blood Cell (WBC) Count 6.4 thou/uL (4.8-10.8)
[2017-08-06 12:32] LABS: ALT (SGPT) Less than 7 U/L (8-55); AST (SGOT) 15 U/L (5-34); Albumin 3.2 g/dL (3.5-5.0); Alkaline Phosphatase 55 U/L (40-150); Anion Gap 11 mmol/L (10-20); BUN (Urea Nitrogen) 8 mg/dL (9.8-20.1); Bilirubin, Total 0.5 mg/dL (0.2-1.2); Calc. Creatinine Clearance 0 mL/min (70-130); Calcium 9.2 mg/dL (7.8-10.44); Carbon Dioxide 26 mmol/L (22-29); Chloride 105 mmol/L (98-107); Estimated GFR-MDRD 83; Globulin 4.6 g/dL (2.4-3.5); Glucose 80 mg/dL (70-105); Lipase 37 U/L (8-78); Protein, Total 7.8 g/dL (6.0-8.3); Sodium 138 mmol/L (136-145)
[2017-08-06 12:35] LABS: CKMB 0.4 ng/mL (0-6.6); Troponin I Less than 0.010 ng/mL (< 0.028)
--- NOTE | 2017-08-06 13:13 | CT ---
ABDOMEN CT WITH CONTRAST PELVIC CT WITH CONTRAST: COMPARISON: 01/02/17. HISTORY: Abdominal pain. TECHNIQUE: An abdomen and pelvic CT are performed with IV contrast. Enteric contrast was not administered. Cor onal reformatted images are submitted for interpretation. FINDINGS: Lung bases are clear. Heart size is normal. No significant pericardial effusion. The descending th oracic aorta and the abdominal aorta have an overall normal caliber. No periaortic fat stranding. Gallbladder is surgically absent. Intra- and extrahepatic portal vein is patent. The liver, spleen, pancreas, and adrenal glands have appropriate enhancement. No gastrohepatic, retrocrural, or periportal lymphadenopathy. No mesenteri c mass, lymphadenopathy, free air, or free fluid. Percutaneous gastric feeding tube is noted with the distal tip in the body of the stomach. Evaluatio n of the alimentary canal is limited by the lack of oral contrast. Gastric mucosa, duodenum, and mul tiple normal-caliber small bowel loops are noted. The ileocecal junction is normal. Normal-caliber appendix. Scattered fecal material in a nondistended, nondilated colon. There is some diverticulosi s. No evidence of diverticulitis. There is a moderate amount of fecal material in the distal sigmoid colon and rectum. Correlate for f ecal impaction. Symmetric enhancement of the kidneys. No obstructive uropathy. PELVIC CT: The urinary bladder is unremarkable. No pelvic mass, lymphadenopathy, free air, or free fluid. Mild edema of the soft tissues is noted. No lytic or blastic lesion. IMPRESSION: No acute abnormality in the abdomen or pelvis. Moderate amount of fecal material in the sigmoid colo n. Correlate for fecal impaction. POS: [facility]
[2017-08-06 15:42] LABS: Bilirubin Negative (Negative); Blood, Urine Moderate (Negative); Glucose, Urine (Dipstick) Negative (Negative); Leukocyte Moderate (Negative); Nitrite Negative (Negative); Protein, Urine (Dipstick) 30 mg/dL (Neg-Trace); Urobilinogen 0.2 mg/dL (0.2-1.0)
[2017-08-06 15:43] LABS: Clarity CLOUDY (Clear)
[2017-08-06 15:44] LABS: Other Microscopic Description Less than 2 mL rec'd
== END 2017-08-06 17:08 | disposition home or self-care (01) ==
LOC: ERS 11:36
DX: N39.0 Urinary tract infection, site not specified (principal); I10 Essential (primary) hypertension; F03.90 Unspecified dementia, unspecified severity, without behavioral disturbance, psychotic disturbance, mood disturbance, and anxiety; F41.9 Anxiety disorder, unspecified; F31.9 Bipolar disorder, unspecified; Z87.891 Personal history of nicotine dependence; Z79.899 Other long term (current) drug therapy
CPT/HCPCS: 51701; 74177; 80053; 81003; 81015; 82553; 83690; 84484; 85025; 93005; 96360; 96361; A4353

== ENCOUNTER 2017-12-06 09:09 | Emergency (ER) | payer BC, MEDICAID ==
[2017-12-06 10:14] LABS: #Eosinphils 0.1 thou/uL (0.0-0.7); #Monocytes 0.4 thou/uL (0.11-0.59); #Neutrophils 3.4 thou/uL (1.40-6.50); %Basophils 0.8 % (0.0-1.0); %Eosinophils 1.3 % (0.0-10.0); %Lymphocytes 34.2 % (21.0-51.0); %Neutrophils 56.7 % (42.0-75.0); Hemoglobin 12.5 g/dL (12.0-16.0); Mean Corpuscular HGB CONC 30.7 g/dL (32.0-36.0); Mean Corpuscular Hemoglobin 28.2 pg (27.0-31.0); Mean Platelet Volume 8.9 fL (7.4-10.4); Platelet Count 272 thou/uL (130-400); RBC Distribution Width 13.5 % (11.5-14.5); Red Blood Cell (RBC) Count 4.43 mill/uL (4.20-5.40); White Blood Cell (WBC) Count 5.9 thou/uL (4.8-10.8)
[2017-12-06 10:37] LABS: ALT (SGPT) 7 U/L (8-55); AST (SGOT) 21 U/L (5-34); Albumin 3.3 g/dL (3.5-5.0); Alkaline Phosphatase 66 U/L (40-150); Anion Gap 14 mmol/L (10-20); BUN (Urea Nitrogen) 11 mg/dL (9.8-20.1); Bilirubin, Total 0.4 mg/dL (0.2-1.2); CK (CPK) 9 U/L (29-168); Calc. Creatinine Clearance 0 mL/min (70-130); Calcium 9.2 mg/dL (7.8-10.44); Carbon Dioxide 27 mmol/L (22-29); Chloride 100 mmol/L (98-107); Estimated GFR-MDRD 70; Globulin 4.9 g/dL (2.4-3.5); Glucose 136 mg/dL (70-105); Protein, Total 8.2 g/dL (6.0-8.3); Sodium 137 mmol/L (136-145)
[2017-12-06 10:45] LABS: CKMB 0.2 ng/mL (0-6.6); Troponin I Less than 0.010 ng/mL (< 0.028)
--- NOTE | 2017-12-06 11:21 | RAD ---
PORTABLE CHEST 1 VIEW: Date: 12/06/17 Time: 1028 hours HISTORY: Cough. FINDINGS/IMPRESSION: Comparison made with exam of 10/11/15. The heart size is normal. The lungs are expanded without lobar consolidation, pneumothoraces, or pleu ral effusions. Mild infiltrates are seen in the left infrahilar region. No pneumothoraces or pleural effusions are identified. The possibility of early/developing pneumonia should be considered. POS: [facility]
--- NOTE | 2017-12-07 16:51 | EKG ---
Test Reason : Blood Pressure : / mmHG Vent. Rate : 064 BPM Atrial Rate : 064 BPM P-R Int : 162 ms QRS Dur : 074 ms QT Int : 398 ms P-R-T Axes : 052 020 040 degrees QTc Int : 410 ms Normal sinus rhythm Nonspecific ST and T wave abnormality Abnormal ECG Confirmed by CASE ACUNA, DR. Celaya ([id number]) on 12/07/2017 4:50:46 PM Referred By: Confirmed By:DR. Belia WILLOUGHBY MD
== END 2017-12-06 13:05 | disposition home or self-care (01) ==
LOC: ERS 09:09
DX: J18.9 Pneumonia, unspecified organism (principal); I10 Essential (primary) hypertension; F03.90 Unspecified dementia, unspecified severity, without behavioral disturbance, psychotic disturbance, mood disturbance, and anxiety; F31.9 Bipolar disorder, unspecified; Z79.899 Other long term (current) drug therapy
CPT/HCPCS: 36415; 71045; 80053; 82550; 82553; 84484; 85025; 87040; 93005; 96365; J1956

== ENCOUNTER 2018-02-09 09:08 | Emergency (ER) | payer BC ==
--- NOTE | 2018-02-09 11:11 | CT ---
CT BRAIN: History: 52-year-old presents with a history of convulsions. Comparison: 12-11-16 FINDINGS: Noncontrast enhanced CT images of the brain obtained. CT images of the brain demonstrate extensive cortical atrophy and deep white matter ischemic changes. There is marked frontal and bilateral temporal lobe cortical atrophy seen. No evidence of acute intr acranial masses, hemorrhages, strokes or contusions seen. Ventricles are of normal size considering t he degree of cortical atrophy. No evidence of acute intracranial pathology noted. IMPRESSION: Cortical atrophy without evidence of significant acute intracranial abnormalities seen. POS: [facility]
[2018-02-09 11:34] LABS: #Lymphocytes 0.6 thou/uL (1.20-3.40); #Monocytes 0.4 thou/uL (0.11-0.59); #Neutrophils 7.9 thou/uL (1.40-6.50); %Basophils 0.3 % (0.0-1.0); %Eosinophils 0.3 % (0.0-10.0); %Lymphocytes 6.3 % (21.0-51.0); %Monocytes 4.3 % (0.0-10.0); %Neutrophils 88.8 % (42.0-75.0); Hemoglobin 12.8 g/dL (12.0-16.0); Mean Corpuscular HGB CONC 32.8 g/dL (32.0-36.0); Mean Corpuscular Volume 91.4 fL (78.0-98.0); Mean Platelet Volume 8.1 fL (7.4-10.4); Platelet Count 158 thou/uL (130-400); RBC Distribution Width 12.3 % (11.5-14.5); Red Blood Cell (RBC) Count 4.26 mill/uL (4.20-5.40); White Blood Cell (WBC) Count 8.9 thou/uL (4.8-10.8)
[2018-02-09 12:02] LABS: Albumin 3.3 g/dL (3.5-5.0)
[2018-02-09 12:04] LABS: Calcium 8.9 mg/dL (7.8-10.44); Chloride 97 mmol/L (98-107); Potassium 3.7 mmol/L (3.5-5.1); Sodium 131 mmol/L (136-145)
[2018-02-09 12:05] LABS: Globulin 3.7 g/dL (2.4-3.5); Glucose 124 mg/dL (70-105)
[2018-02-09 12:06] LABS: Anion Gap 12 mmol/L (10-20); Carbon Dioxide 26 mmol/L (22-29)
[2018-02-09 12:07] LABS: Bilirubin, Total 0.5 mg/dL (0.2-1.2)
[2018-02-09 12:08] LABS: Alkaline Phosphatase 65 U/L (40-150); Calc. Creatinine Clearance 0 mL/min (70-130); Estimated GFR-MDRD 89
[2018-02-09 12:09] LABS: BUN (Urea Nitrogen) 11 mg/dL (9.8-20.1)
[2018-02-09 12:10] LABS: AST (SGOT) 31 U/L (5-34)
[2018-02-09 12:11] LABS: ALT (SGPT) 22 U/L (8-55)
== END 2018-02-09 11:38 | disposition home or self-care (01) ==
LOC: ERS 09:08
DX: F03.90 Unspecified dementia, unspecified severity, without behavioral disturbance, psychotic disturbance, mood disturbance, and anxiety (principal); F31.9 Bipolar disorder, unspecified; Z87.891 Personal history of nicotine dependence
CPT/HCPCS: 36415; 70450; 80053; 85025

== ENCOUNTER 2018-02-12 13:17 | Observation (INO) | payer BC ==
[2018-02-12 14:51] LABS: #Lymphocytes 0.8 thou/uL (1.20-3.40); #Monocytes 0.5 thou/uL (0.11-0.59); #Neutrophils 6.8 thou/uL (1.40-6.50); %Basophils 0.4 % (0.0-1.0); %Eosinophils 0.3 % (0.0-10.0); %Lymphocytes 10.2 % (21.0-51.0); %Monocytes 5.6 % (0.0-10.0); %Neutrophils 83.5 % (42.0-75.0); Hemoglobin 13.1 g/dL (12.0-16.0); Mean Corpuscular HGB CONC 33.4 g/dL (32.0-36.0); Mean Corpuscular Hemoglobin 30.9 pg (27.0-31.0); Mean Corpuscular Volume 92.3 fL (78.0-98.0); Mean Platelet Volume 7.7 fL (7.4-10.4); Platelet Count 213 thou/uL (130-400); Red Blood Cell (RBC) Count 4.24 mill/uL (4.20-5.40); White Blood Cell (WBC) Count 8.2 thou/uL (4.8-10.8)
--- NOTE | 2018-02-12 14:59 | RAD ---
CHEST ONE VIEW: INDICATIONS: Difficulty walking with weakness. COMPARISON: 12/06/2017 FINDINGS: Chronic lung changes are stable. Heart size is normal. No air space consolidation, pleural effusion , or pneumothorax is evident. No acute osseous abnormality is evident. Surgical clips are seen with in the right upper quadrant. IMPRESSION: No acute cardiopulmonary abnormalities. POS: [facility]
[2018-02-12 15:14] LABS: ALT (SGPT) 13 U/L (8-55); AST (SGOT) 20 U/L (5-34); Albumin 3.4 g/dL (3.5-5.0); Alkaline Phosphatase 64 U/L (40-150); Anion Gap 13 mmol/L (10-20); BUN (Urea Nitrogen) 10 mg/dL (9.8-20.1); Bilirubin, Total 0.6 mg/dL (0.2-1.2); Calc. Creatinine Clearance 0 mL/min (70-130); Calcium 9.6 mg/dL (7.8-10.44); Carbon Dioxide 28 mmol/L (22-29); Chloride 96 mmol/L (98-107); Estimated GFR-MDRD 90; Globulin 4.1 g/dL (2.4-3.5); Glucose 103 mg/dL (70-105); Protein, Total 7.5 g/dL (6.0-8.3); Sodium 133 mmol/L (136-145)
[2018-02-12 15:18] LABS: CKMB 0.9 ng/mL (0-6.6); Troponin I Less than 0.010 ng/mL (< 0.028)
[2018-02-12 17:00] LABS: Bilirubin Negative (Negative); Blood, Urine Trace (Negative); Clarity CLOUDY (Clear); Glucose, Urine (Dipstick) Negative (Negative); Leukocyte Large (Negative); Nitrite Positive (Negative); Protein, Urine (Dipstick) Negative (Neg-Trace); Specific Gravity, Urine 1.003 (1.002-1.036); Urobilinogen 0.2 mg/dL (0.2-1.0)
--- NOTE | 2018-02-12 17:06 | CT ---
CT OF THE BRAIN WITHOUT CONTRAST: Comparison: 02-09-18 History: Difficulty walking for two days, weakness; history of seizures. Technique: Multiple contiguous axial images were obtained in a CT of the brain without contrast. FINDINGS: There is atrophy of the bilateral frontal and temporal lobes. There is ex vacuo dilatation of the lat eral ventricles secondary to atrophy. This is unchanged compared to the prior exam. There is no evide nce of hydrocephalus, intracranial hemorrhage or extraaxial fluid collections. The calvarium and overlying soft tissues are unremarkable. The visualized paranasal sinuses and masto id air cells are well aerated. IMPRESSION: 1. No evidence of acute intracranial abnormality. POS: [facility]
[2018-02-12 17:08] LABS: Yeast-AUWi Flag 47.5 (0-25.0)
[2018-02-12 17:21] LABS: Bacteria/HPF 2+ HPF (None Seen); Hyaline Casts/LPF NONE SEEN LPF (0-3 Hyaline); Squamous Epithelial 0-3 HPF (0-3)
[2018-02-12] MEDS ORDERED: cefTRIAXone\\ROCEPHIN 2 GM VIAL ONE (17:40)
[2018-02-12] MEDS ORDERED: Ondansetron ODT 4 MG TAB PO PRN (20:24)
[2018-02-12] MEDS ORDERED: Acetaminophen 325 MG TAB PO PRN (20:24)
[2018-02-12] MEDS ORDERED: Famotidine 20 MG TAB PO SCH (21:00)
[2018-02-12] MEDS ORDERED: Famotidine/PF 20 mg/2ml Vial ONE (23:28)
[2018-02-13 03:51] LABS: #Eosinphils 0.1 thou/uL (0.0-0.7); #Lymphocytes 2.1 thou/uL (1.20-3.40); #Monocytes 0.5 thou/uL (0.11-0.59); #Neutrophils 4.5 thou/uL (1.40-6.50); %Basophils 0.6 % (0.0-1.0); %Eosinophils 0.9 % (0.0-10.0); %Lymphocytes 29.1 % (21.0-51.0); %Neutrophils 62.5 % (42.0-75.0); Hemoglobin 11.6 g/dL (12.0-16.0); Mean Corpuscular HGB CONC 33.1 g/dL (32.0-36.0); Mean Corpuscular Hemoglobin 30.7 pg (27.0-31.0); Mean Corpuscular Volume 92.7 fL (78.0-98.0); Mean Platelet Volume 7.6 fL (7.4-10.4); Platelet Count 222 thou/uL (130-400); Red Blood Cell (RBC) Count 3.77 mill/uL (4.20-5.40); White Blood Cell (WBC) Count 7.1 thou/uL (4.8-10.8)
[2018-02-13 04:08] LABS: Anion Gap 10 mmol/L (10-20); BUN (Urea Nitrogen) 7 mg/dL (9.8-20.1); Calc. Creatinine Clearance 0 mL/min (70-130); Carbon Dioxide 29 mmol/L (22-29); Chloride 103 mmol/L (98-107); Estimated GFR-MDRD Greater than 90; Glucose 85 mg/dL (70-105); Potassium 4.1 mmol/L (3.5-5.1); Sodium 138 mmol/L (136-145)
[2018-02-13] MEDS: Famotidine 20 MG TAB PER TUBE SCH ×3 (09:57→23:31)
[2018-02-13] MEDS: Cyanocobalamin (Vitamin B-12) 1,000 MCG TAB PER TUBE SCH (09:58)
[2018-02-13] MEDS: Folic Acid 1 MG TAB PER TUBE SCH (10:00)
[2018-02-13] MEDS: Multivitamin W/ Minerals 1 TAB PER TUBE SCH (10:01)
[2018-02-13] MEDS: Amlodipine 5 MG TAB PER TUBE SCH (11:12)
[2018-02-13] MEDS ORDERED: Enoxaparin Sodium 40 MG/0.4 ML SYRINGE ONE (11:42)
[2018-02-13] MEDS ORDERED: Famotidine/PF 20 mg/2ml Vial ONE (12:38)
[2018-02-13] MEDS: Enoxaparin Sodium 40 MG/0.4 ML SYRINGE SC SCH (12:40)
[2018-02-13] MEDS: Famotidine/PF 20 mg/2ml Vial SLOW IVP SCH ×4 (12:40→23:32)
[2018-02-13] MEDS ORDERED: cefTRIAXone\\ROCEPHIN 1 GM in Sodium Chloride 0.9% 100 ML IVPB SCH (18:00)
[2018-02-13] MEDS ORDERED: Sodium Chloride 0.9% 100 ML ONE (18:43)
[2018-02-13] MEDS ORDERED: cefTRIAXone\\ROCEPHIN 1 GM VIAL ONE (18:43)
[2018-02-13 23:17] VITALS: BMI 16.5
[2018-02-13] MEDS: Mirtazapine 15 MG TAB PER TUBE SCH ×2 (23:30→23:31)
[2018-02-13] MEDS: Sodium Chloride 0.9% 1,000 ML IV SCH (23:30)
[2018-02-14] MEDS: Sodium Chloride 0.9% 1,000 ML IV SCH ×3 (02:22→22:26)
[2018-02-14] MEDS: Famotidine/PF 20 mg/2ml Vial SLOW IVP SCH ×2 (08:23→21:08)
[2018-02-14] MEDS: Multivitamin W/ Minerals 1 TAB PER TUBE SCH (08:23)
[2018-02-14] MEDS: Famotidine 20 MG TAB PER TUBE SCH ×2 (08:23→21:08)
[2018-02-14] MEDS: Folic Acid 1 MG TAB PER TUBE SCH (08:24)
[2018-02-14] MEDS: Cyanocobalamin (Vitamin B-12) 1,000 MCG TAB PER TUBE SCH (08:26)
[2018-02-14] MEDS: Enoxaparin Sodium 40 MG/0.4 ML SYRINGE SC SCH (08:26)
[2018-02-14] MEDS: Amlodipine 5 MG TAB PER TUBE SCH (08:27)
--- NOTE | 2018-02-14 09:46 | PDOC.PN ---
- Subjective Encounter Start Date: 02/13/18 Encounter Start Time: 12:00 -: non-verbal Subjective: discussed with - Objective Resuscitation Status - Order Detail: 02/13/18 16:56 Resuscitation Status Routine Resuscitation Status: DNAR: NO Resuscitation Discussed with: discussed wiith , DREW SINCLAIR Reviewed: Yes Vital Signs & Weight: Vital Signs (12 hours) Temp Pulse Resp BP BP Pulse Ox 02/14/18 08:27 76 02/14/18 08:00 99 02/14/18 07:07 97.8 F 76 19 133/68 99 02/14/18 04:00 97.8 F 76 20 149/81 H 99 02/14/18 00:00 97.6 F 73 20 146/73 H 98 02/13/18 22:38 98.0 F 60 18 143/75 H 99 Weight Weight 90 lb 8 oz I&O: 02/13/18 02/14/18 02/15/18 06:59 06:59 06:59 Intake Total 250 Balance 250 Result Diagrams: 02/13/18 03:41 02/13/18 03:41 Phys Exam - Physical Examination Neck: no JVD Respiratory: clear to auscultation bilateral Cardiovascular: RRR, no significant murmur Gastrointestinal: soft, positive bowel sounds Musculoskeletal: no edema Dx/Plan (1) Weakness Code(s): R53.1 - WEAKNESS Status: Acute (2) Failure to thrive in adult Status: Acute (3) S/P percutaneous endoscopic gastrostomy (PEG) tube placement Code(s): Z93.1 - GASTROSTOMY STATUS Status: Acute (4) Bipolar disorder Code(s): F31.9 - BIPOLAR DISORDER, UNSPECIFIED Status: Chronic (5) Rheumatoid arthritis Code(s): M06.9 - RHEUMATOID ARTHRITIS, UNSPECIFIED Status: Chronic - Plan no criteria for admission, working with , etc for referralto , etc * .
--- NOTE | 2018-02-14 10:12 | PDOC.PN ---
- Subjective Encounter Start Date: 02/14/18 Encounter Start Time: 10:11 -: non-verbal - Objective Resuscitation Status - Order Detail: 02/13/18 16:56 Resuscitation Status Routine Resuscitation Status: DNAR: NO Resuscitation Discussed with: discussed wirashid , DREW SINCLAIR Reviewed: Yes Vital Signs & Weight: Vital Signs (12 hours) Temp Pulse Resp BP BP Pulse Ox 02/14/18 08:27 76 02/14/18 08:00 99 02/14/18 07:07 97.8 F 76 19 133/68 99 02/14/18 04:00 97.8 F 76 20 149/81 H 99 02/14/18 00:00 97.6 F 73 20 146/73 H 98 02/13/18 22:38 98.0 F 60 18 143/75 H 99 Weight Weight 90 lb 8 oz I&O: 02/13/18 02/14/18 02/15/18 06:59 06:59 06:59 Intake Total 250 Balance 250 Result Diagrams: 02/13/18 03:41 02/13/18 03:41 Phys Exam - Physical Examination Neck: no JVD Respiratory: clear to auscultation bilateral Cardiovascular: RRR, no significant murmur Gastrointestinal: soft, positive bowel sounds Musculoskeletal: no edema Dx/Plan (1) Weakness Code(s): R53.1 - WEAKNESS Status: Acute (2) Failure to thrive in adult Status: Chronic (3) S/P percutaneous endoscopic gastrostomy (PEG) tube placement Code(s): Z93.1 - GASTROSTOMY STATUS Status: Chronic (4) Bipolar disorder Code(s): F31.9 - BIPOLAR DISORDER, UNSPECIFIED Status: Chronic (5) Rheumatoid arthritis Code(s): M06.9 - RHEUMATOID ARTHRITIS, UNSPECIFIED Status: Chronic - Plan cont current plan of care awaitig hospice acceptance * .
[2018-02-14] MEDS ORDERED: Doxycycline Monohydrate 25 MG/5 ML PER TUBE SCH (21:00)
[2018-02-14] MEDS: Mirtazapine 15 MG TAB PER TUBE SCH (21:08)
[2018-02-14] MEDS: Zolpidem Tartrate 5 MG TAB PO PRN (22:27)
[2018-02-15] MEDS: Zolpidem Tartrate 5 MG TAB PO PRN (00:20)
[2018-02-15] MEDS: Amlodipine 5 MG TAB PER TUBE SCH (07:55)
[2018-02-15] MEDS: Folic Acid 1 MG TAB PER TUBE SCH (07:57)
[2018-02-15] MEDS: Multivitamin W/ Minerals 1 TAB PER TUBE SCH (07:57)
[2018-02-15] MEDS: Famotidine 20 MG TAB PER TUBE SCH ×2 (07:58→19:57)
[2018-02-15] MEDS: Cyanocobalamin (Vitamin B-12) 1,000 MCG TAB PER TUBE SCH (07:58)
[2018-02-15] MEDS: Enoxaparin Sodium 40 MG/0.4 ML SYRINGE SC SCH (07:59)
[2018-02-15] MEDS: Doxycycline 100 MG CAP PER TUBE SCH ×2 (08:55→19:57)
[2018-02-15] MEDS: Famotidine/PF 20 mg/2ml Vial SLOW IVP SCH ×2 (08:59→19:57)
[2018-02-15] MEDS: Sodium Chloride 0.9% 1,000 ML IV SCH ×2 (08:59→18:18)
--- NOTE | 2018-02-15 13:01 | RAD ---
TWO VIEWS RIGHT HIP: Comparison: None. History: Right hip pain. FINDINGS: Two views of the right hip shows no evidence of acute fracture or dislocation. No degenerative change s are seen. No soft tissue swelling is present. IMPRESSION: Unremarkable exam. POS: [facility]
--- NOTE | 2018-02-15 14:40 | RAD ---
TWO VIEWS LEFT KNEE: Comparison: None. History: Left knee pain. FINDINGS: Two views of the left knee shows no evidence of acute fracture or dislocation. No knee effusion is se en. No focal soft tissue swelling is seen. No significant degenerative changes are present. IMPRESSION: No evidence of acute osseous abnormality of the left knee. POS: [facility]
[2018-02-15] MEDS: Mirtazapine 15 MG TAB PER TUBE SCH (19:57)
[2018-02-16] MEDS: Sodium Chloride 0.9% 1,000 ML IV SCH (05:42)
[2018-02-16] MEDS: Multivitamin W/ Minerals 1 TAB PER TUBE SCH (08:42)
[2018-02-16] MEDS: Famotidine 20 MG TAB PER TUBE SCH (08:42)
[2018-02-16] MEDS: Enoxaparin Sodium 40 MG/0.4 ML SYRINGE SC SCH (08:43)
[2018-02-16] MEDS: Amlodipine 5 MG TAB PER TUBE SCH (08:43)
[2018-02-16] MEDS: Cyanocobalamin (Vitamin B-12) 1,000 MCG TAB PER TUBE SCH (08:43)
[2018-02-16] MEDS: Famotidine/PF 20 mg/2ml Vial SLOW IVP SCH (08:43)
[2018-02-16] MEDS: Folic Acid 1 MG TAB PER TUBE SCH (08:45)
[2018-02-16] MEDS: Doxycycline 100 MG CAP PER TUBE SCH (08:45)
--- NOTE | 2018-02-16 10:02 | DIS ---
DATE OF ADMISSION: 02/12/2018 DATE OF DISCHARGE: 02/16/2018 TRANSFER OF CARE: DISPOSITION: Discharged home. FINAL DIAGNOSES: 1. Dehydration. 2. Dementia. 3. Failure to thrive. 4. Generalized weakness. 5. Urinary tract infection. DISCHARGE MEDICINES: 1. Prozac 20 mg a day. 2. Multivitamin. 3. Mirtazapine 30 mg at bedtime. ALLERGIES: 1. DEMEROL. 2. CODEINE. CODE STATUS: DNR. PENDING AT TIME OF DISCHARGE: Nothing. HOSPITAL COURSE: The patient admitted through [facility] to the [facility] with initial diagnosis of encephalopathy secondary to urinary tract infection and dehydration. The patient was actually at her baseline status. She did have urinary tract infection with Kocuria kristinae, which was treated with IV antibiotics. Case Management was involved with attempting to provide assistance with taking her to home. She has previous PEG tube, which she is not using. She is drinking Ensure, swallowing without troubles. LABORATORY DATA: CBC was unremarkable, Followup was unremarkable. Metabolic profile showed only a sodium of 133, is an abnormality, followup is 138. Apparently, attempts to have replaced have been met with insufficient funding. She is going home on home health. Her is agreeable with this. She is to follow up with her PCP in 1 week after followup. Job ID: [id number]
[2018-02-16 11:49] VITALS: BP 129/71; TEMP 97.5
== END 2018-02-16 13:34 | disposition home or self-care (01) ==
LOC: ERS 13:17 → ERHOLD 19:26 → T4-A 02-13 19:40 → ERHOLD 02-13 20:50 → T4-A 02-13 22:48
PROVIDERS: ADMIT Internal Medicine; ATTEND Internal Medicine
DX: E86.0 Dehydration (principal); R62.7 Adult failure to thrive; N39.0 Urinary tract infection, site not specified; F31.9 Bipolar disorder, unspecified; M06.9 Rheumatoid arthritis, unspecified; Z93.1 Gastrostomy status; F03.90 Unspecified dementia, unspecified severity, without behavioral disturbance, psychotic disturbance, mood disturbance, and anxiety; Z88.5 Allergy status to narcotic agent; Z91.040 Latex allergy status; Z79.899 Other long term (current) drug therapy
CPT/HCPCS: 36415; 70450; 71045; 80048; 80053; 81003; 81015; 82553; 84484; 85025; 87077; 87086; 90471; 90686; 93005; 96361; 96365; 96366; 96372; 96375; 96376; A4353; G0008; G0378; J0696; J1650; J7050; S0028

== ENCOUNTER 2018-03-22 09:51 | Inpatient (IN) | payer BC ==
--- NOTE | 2018-03-22 10:36 | CT ---
CT OF THE BRAIN WITHOUT CONTRAST: Date: 03/22/18 COMPARISON: 02/12/18. HISTORY: Fall. Baseline dementia. TECHNIQUE: Multiple contiguous axial images were obtained in a CT of the brain without contrast. FINDINGS: There is stable bitemporal atrophy. There is ex vacuo dilatation of the lateral ventricle secondary t o the cerebral atrophy. There is no evidence of hydrocephalus, intracranial hemorrhage, or extra-axia l fluid collection. The calvarium and overlying soft tissues are unremarkable. The visualized paranasal sinuses and masto id air cells are well aerated. IMPRESSION: No evidence of acute intracranial abnormality. POS: [facility]
--- NOTE | 2018-03-22 11:09 | CT ---
CT CERVICAL SPINE WITHOUT CONTRAST: HISTORY: Fall with neck pain. COMPARISON: None. TECHNIQUE: Multiple contiguous axial images were obtained in a CT of the cervical spine without contrast. FINDINGS: The vertebral bodies demonstrate normal height and alignment without fracture or subluxation. Small osteophytes are seen in the lower cervical spine. No prevertebral soft tissue swelling is seen. The posterior facets are well aligned. Normal alignment of the skull base with the cervical spine is seen. IMPRESSION: No evidence of acute osseous abnormality of the cervical spine. POS: [facility]
--- NOTE | 2018-03-22 11:13 | RAD ---
RIGHT HIP TWO VIEWS: HISTORY: Fall with pelvis and right hip pain. FINDINGS: Two views of the right hip show a questionable fracture along the greater trochanter of the femur. T his is not definitely seen extending through the medial aspect of the femur. This may or may not rep resent a fracture. No dislocation is seen. IMPRESSION: Possible intertrochanteric femur fracture. A CT of the right hip is recommended for further evaluati on. POS: [facility]
--- NOTE | 2018-03-22 11:19 | CT ---
CT LUMBAR SPINE: INDICATIONS: Fall with injury to back. TECHNIQUE: Multiple axial tomograms obtained through the lumbar spine with multiplanar reconstruction. FINDINGS: The lumbar vertebrae maintain normal height and alignment. Disk spaces are preserved. No evidence o f compression or acute fracture. No spondylolysis of spondylolisthesis. Mild disk bulge at L3-L4 with facet hypertrophy results in mild central canal stenosis. At L4-L5, mild disk bulge with facet hypertrophy, which is more prominent on the right. Mild central canal stenosis and right foraminal stenosis secondary to prominent facet hypertrophy on the right. At L5-S1, no significant disk bulge. Facet hypertrophy is prominent; however, no central canal or fo raminal stenosis. 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 There are bilateral sacral fractures. Fracture lines are seen running craniocaudally in the sacrum o n the coronal image bilaterally. Sclerosis is seen along these fracture lines, which would suggest c hronic or subacute injury. On the lateral view, there is slight displacement at the S1-S2 level due to this sacral fracture. IMPRESSION: 1. There are fractures involving both sacral wings suggesting chronic insufficiency fractures. Ther e is slight displacement on the lateral view, at the S1-S2 level. 2. No lumbar vertebral compression or fracture. Degenerative facet changes of the lumbar spine, as described above. Findings discussed with Dr. Gonzalez. CODE CR POS: [facility]
--- NOTE | 2018-03-22 11:35 | RAD ---
FRONTAL RADIOGRAPH OF PELVIS: Date: 03/22/18 COMPARISON: None. HISTORY: Fall, pain. FINDINGS: Evaluation of bilateral hips is limited secondary to multiple skin folds. There may be a fracture at the medial aspect of the greater trochanter on the right. 2 view examination of the right hip is advi sed for further assessment. Pelvic ring appears intact. Neither hip appears dislocated. The sacrum is poorly assessed secondary to stool and bowel gas. IMPRESSION: Question nondisplaced fracture at the level of the greater trochanter on the right. Dedicated right h ip radiographs advised. POS: [facility]
--- NOTE | 2018-03-22 12:04 | CT ---
CT RIGHT HIP WITHOUT CONTRAST: Date: 03/22/18 COMPARISON: None. HISTORY: Fall with right hip pain. TECHNIQUE: Multiple contiguous axial images were obtained in a CT of the right hip without contrast. Sagittal an d coronal reformats were performed. FINDINGS: Lucency is seen through the proximal aspect of the right femur extending from the lateral cortex to t he medial cortex. This is in the region of the lateral aspect of the femoral neck and medial aspect o f intertrochanteric region of the femur consistent with an acute fracture. Minimal surrounding soft t issue swelling is seen. No dislocation of the femoral head is seen. No other fractures of the bones o f the right pelvis are seen. There is sclerosis of the left inferior pubic ramus which may represent a remote fracture of the left pelvis. Moderate stool is seen in the colon. Diffuse soft tissue anasarca is seen. IMPRESSION: 1. Acute proximal right femur fracture. 2. Remote fracture of the left inferior pubic ramus. POS: [facility]
--- NOTE | 2018-03-22 14:03 | RAD ---
RIGHT FEMUR: INDICATIONS: Fall. TECHNIQUE: AP and lateral views obtained, a total of four images. FINDINGS: The femoral neck is not adequately positioned in the AP projection. No definite fracture identified; however, if there is concern for hip fracture, recommend dedicated hip views with proper positioning . POS: [facility]
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
[2018-03-22] MEDS ORDERED: hydrALAZINE 20 MG/ML VIAL SLOW IVP PRN (15:41)
[2018-03-22] MEDS ORDERED: Ondansetron PF 4 MG/2 ML Vial IVP PRN (15:41)
[2018-03-22] MEDS ORDERED: Dextrose 50% Abboject 50 ML SYRINGE SLOW IVP PRN (15:41)
[2018-03-22] MEDS ORDERED: Morphine 4 MG/ML VIAL SLOW IVP PRN (15:41)
[2018-03-22] MEDS ORDERED: Ondansetron ODT 4 MG TAB PO PRN (15:41)
[2018-03-22] MEDS ORDERED: Dextrose 5% in Water 1,000 ML IV PRN (15:41)
[2018-03-22 15:49] VITALS: BMI 14.1
[2018-03-22] MEDS ORDERED: CEFAZOLIN/Water 2 GM/20 ML SYRINGE SLOW IVP SCH (16:30)
[2018-03-22] MEDS ORDERED: CEFAZOLIN 2 GM/50 ML-DEXTROSE 2 GM in Premix Bag 1 BAG IVPB SCH (16:30)
[2018-03-22 16:44] LABS: #Monocytes 0.5 thou/uL (0.11-0.59); #Neutrophils 8.6 thou/uL (1.40-6.50); %Basophils 0.2 % (0.0-1.0); %Eosinophils 0.4 % (0.0-10.0); %Lymphocytes 10.3 % (21.0-51.0); %Monocytes 4.6 % (0.0-10.0); %Neutrophils 84.6 % (42.0-75.0); Mean Corpuscular HGB CONC 31.9 g/dL (32.0-36.0); Mean Corpuscular Hemoglobin 29.6 pg (27.0-31.0); Mean Corpuscular Volume 92.8 fL (78.0-98.0); Mean Platelet Volume 10.3 fL (7.4-10.4); Platelet Count 248 thou/uL (130-400); RBC Distribution Width 11.8 % (11.5-14.5); White Blood Cell (WBC) Count 10.1 thou/uL (4.8-10.8)
[2018-03-22 16:50] LABS: Anion Gap 12 mmol/L (10-20); BUN (Urea Nitrogen) 11 mg/dL (9.8-20.1); Calc. Creatinine Clearance 57 mL/min (70-130); Calcium 9.1 mg/dL (7.8-10.44); Carbon Dioxide 28 mmol/L (22-29); Chloride 94 mmol/L (98-107); Estimated GFR-MDRD Greater than 90; Glucose 98 mg/dL (70-105); Phosphorus 3.3 mg/dL (2.3-4.7); Potassium 4.3 mmol/L (3.5-5.1); Sodium 130 mmol/L (136-145)
[2018-03-22] MEDS: Sodium Chloride 0.9% 1,000 ML IV SCH (17:02)
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
[2018-03-22] MEDS: Acetaminophen 1,000 MG in Premix Bag 1 BAG IVPB SCH ×2 (17:58→23:07)
[2018-03-22] MEDS: Ketorolac Tromethamine 30 MG/ML VIAL IVP SCH ×2 (17:58→23:07)
[2018-03-22 17:59] LABS: Bilirubin Negative (Negative); Blood, Urine Negative (Negative); Clarity CLEAR (Clear); Glucose, Urine (Dipstick) Negative (Negative); Leukocyte Trace (Negative); Nitrite Negative (Negative); Protein, Urine (Dipstick) Negative (Neg-Trace); Specific Gravity, Urine 1.004 (1.002-1.036); Urobilinogen 0.2 mg/dL (0.2-1.0)
[2018-03-22 18:03] LABS: Bacteria/HPF None Seen HPF (None Seen); Hyaline Casts/LPF 0-3 HYALINE CAST LPF (0-3 Hyaline); Pathc Cast-AUWi Flag 0.29 (0-2.49); RBC/HPF 0-3 HPF (0-3); Squamous Epithelial None Seen HPF (0-3); WBC/HPF None Seen HPF (0-3)
[2018-03-22] MEDS: Famotidine 20 MG TAB PO SCH (23:08)
[2018-03-23] MEDS: Sodium Chloride 0.9% 1,000 ML IV SCH ×2 (03:40→12:40)
[2018-03-23] MEDS: Ketorolac Tromethamine 30 MG/ML VIAL IVP SCH ×3 (05:40→18:48)
[2018-03-23] MEDS: Acetaminophen 1,000 MG in Premix Bag 1 BAG IVPB SCH ×2 (05:41→12:02)
[2018-03-23 06:45] LABS: #Basophils 0.1 thou/uL (0.0-0.2); #Eosinphils 0.1 thou/uL (0.0-0.7); #Lymphocytes 1.7 thou/uL (1.20-3.40); #Monocytes 0.4 thou/uL (0.11-0.59); #Neutrophils 3.5 thou/uL (1.40-6.50); %Basophils 1.1 % (0.0-1.0); %Eosinophils 2.3 % (0.0-10.0); %Monocytes 6.4 % (0.0-10.0); %Neutrophils 61.2 % (42.0-75.0); Hemoglobin 10.9 g/dL (12.0-16.0); Mean Corpuscular HGB CONC 31.6 g/dL (32.0-36.0); Mean Corpuscular Hemoglobin 29.1 pg (27.0-31.0); Mean Corpuscular Volume 92.2 fL (78.0-98.0); Mean Platelet Volume 8.5 fL (7.4-10.4); Platelet Count 215 thou/uL (130-400); RBC Distribution Width 11.7 % (11.5-14.5); Red Blood Cell (RBC) Count 3.73 mill/uL (4.20-5.40); White Blood Cell (WBC) Count 5.8 thou/uL (4.8-10.8)
[2018-03-23 07:15] LABS: Anion Gap 10 mmol/L (10-20); BUN (Urea Nitrogen) 11 mg/dL (9.8-20.1); Calc. Creatinine Clearance 64 mL/min (70-130); Calcium 8.2 mg/dL (7.8-10.44); Carbon Dioxide 26 mmol/L (22-29); Chloride 100 mmol/L (98-107); Estimated GFR-MDRD Greater than 90; Glucose 85 mg/dL (70-105); Magnesium 1.7 mg/dL (1.6-2.6); Sodium 132 mmol/L (136-145)
[2018-03-23] MEDS: Famotidine 20 MG TAB PO SCH ×2 (08:07→21:16)
--- NOTE | 2018-03-23 12:33 | PRG ---
DATE OF SERVICE: 03/23/2018 SUBJECTIVE: The patient is on the surgical floor. She has been n.p.o. since midnight. She is awaiting her surgical procedure for her fracture. Overnight, she had no issues. Her , who is at bedside, stated she did sleep well and had no complaints. The nurses were able to get her feeding tube functioning and postoperatively, should be able to give her any pain medicines through the tube that she is not able to take by mouth. We are still awaiting her speech evaluation also. PHYSICAL EXAMINATION: VITAL SIGNS: Temperature is 97.2, heart rate 61, blood pressure 101/62, respirations 18, oxygen saturation 98%. GENERAL: The patient is awake, but appears to be at her baseline with her severe dementia. This is confirmed by the . HEENT: Unremarkable. LUNGS: Clear to auscultation bilaterally. HEART: Regular rate and rhythm. ABDOMEN: Soft, flat, nontender with active bowel sounds. EXTREMITIES: Neurovascularly intact x4. NEURO: Study is grossly intact. LABORATORY FINDINGS: White blood cell count 5.8, hemoglobin 10.9, hematocrit 34.4, platelets 215. Sodium 132, potassium 4.0, chloride 100, CO2 of 26, BUN 11, creatinine 0.57, glucose 85, phosphorus 4.0, magnesium 1.7. There are no radiographs for review this morning. ASSESSMENT: 1. Status post ground level fall. 2. Right hip fracture. 3. Severe dementia. 4. Severe deconditioning. PLAN: Will be to continue supportive care. Postoperatively, will begin working on with Physical and Occupational Therapy. This will be challenging due to the patient's mentation, and placement was discussed with the and he is agreement that the patient is most likely going to require long term placement. The patient was evaluated with Dr. Schmitz during rounds this morning. Job ID: [id number]
[2018-03-23] MEDS ORDERED: CEFAZOLIN 2 GM/50 ML BAG ONE (12:53)
[2018-03-23] MEDS ORDERED: Fentanyl 100 MCG/2 ML VIAL ONE ×2 (13:16→15:39)
[2018-03-23] MEDS ORDERED: SUGAMMADEX SODIUM 500 MG/5 ML VIAL ONE (13:31)
[2018-03-23] MEDS ORDERED: PROPOFOL 20 ML ONE (13:56)
[2018-03-23] MEDS ORDERED: CEFAZOLIN 1 GM VIAL SLOW IVP SCH (14:00)
[2018-03-23] MEDS ORDERED: PROPOFOL 200 MG/20 ML VIAL ONE (14:50)
[2018-03-23] MEDS ORDERED: Glycopyrrolate 0.2 MG/ML 5 ML SYRINGE ONE (14:50)
[2018-03-23] MEDS ORDERED: ePHEDrine/0.9% NaCl/PF SYRINGE 50 mg/10 ml ONE (14:50)
[2018-03-23] MEDS ORDERED: Dexamethasone 20 MG/5 ML VIAL ONE (14:50)
[2018-03-23] MEDS ORDERED: PHENYLEPHRINE-NS 100 MCG/ML 10 ML SYRINGE ONE (14:50)
[2018-03-23] MEDS ORDERED: Ondansetron PF 4 MG/2 ML Vial ONE (14:50)
[2018-03-23] MEDS ORDERED: Lidocaine 1% PF 5 ML VIAL ONE (14:50)
[2018-03-23] MEDS ORDERED: Rocuronium Bromide 10 MG/ML (10ML VIAL) ONE (14:50)
[2018-03-23] MEDS ORDERED: Promethazine HCl 25 MG/ML VIAL IM PRN (15:10)
[2018-03-23] MEDS ORDERED: Promethazine HCl 25 MG/ML VIAL SLOW IVP PRN (15:10)
[2018-03-23] MEDS ORDERED: Ondansetron HCl/PF 4 MG/2 ML Vial IVP PRN (15:10)
[2018-03-23] MEDS ORDERED: Propofol BOLUS 1,000 MG/100 ML VIAL IV PRN (15:34)
[2018-03-23] MEDS ORDERED: DISCONTINUE PREVIOUS NARCOTIC PAIN MEDICATIONS AND BENZODIAZEPINES FS SCH (15:34)
[2018-03-23] MEDS ORDERED: Lorazepam 2 MG/ML VIAL SLOW IVP PRN (15:34)
[2018-03-23] MEDS ORDERED: Morphine 2 MG/ML SYRINGE SLOW IVP PRN (15:34)
[2018-03-23] MEDS ORDERED: Propofol 1,000 MG/100 ML VIAL IV PRN (15:34)
[2018-03-23] MEDS ORDERED: Fentanyl BOLUS 250 ML IVPB PRN (15:34)
[2018-03-23] MEDS ORDERED: fentaNYL Citrate/PF 2,000 MCG in Sodium Chloride 0.9% 60 ML IV SCH (15:34)
[2018-03-23 15:43] LABS: Actual Bicarbonate (HCO3a) 23.9 mEq/L (22-28); Base Excess (BEa) -0.2 mEq/L (-2.0 to +3.0); CO2 Tension 37.4 mmHg (35.0-45.0); Calcium, Ionized 1.13 mmol/L (1.12-1.30); O2 Tension (PaO2) 137.2 mmHg (80.0-100.0); Potassium - ABG Lab 4.08 mmol/L (3.70-5.30); pH, Arterial 7.42 (7.35-7.45)
--- NOTE | 2018-03-23 15:43 | RAD ---
RIGHT HIP TWO VIEW 03/23/18 HISTORY: ORIF. COMPARISON: Femoral radiographs same day. FINDINGS: Satisfactory postop appearance of the compression screw through the right femoral fracture. IMPRESSION: Fluoroscopy for surgical use. POS: [facility]
[2018-03-23 15:45] LABS: Puncture Site LBA
[2018-03-23] MEDS ORDERED: Lorazepam 2 MG/ML VIAL ONE (16:19)
[2018-03-23] MEDS: Acetaminophen 325 MG TAB PO SCH (18:48)
[2018-03-23] MEDS: Dexamethasone 4 mg/ml Vial SLOW IVP SCH (18:49)
[2018-03-23] MEDS: Ibuprofen 200 MG TAB PO SCH (21:16)
--- NOTE | 2018-03-23 22:32 | OP ---
DATE OF PROCEDURE: 03/23/2018 PREOPERATIVE DIAGNOSIS: Right intertrochanteric femur fracture. POSTOPERATIVE DIAGNOSIS: Right intertrochanteric femur fracture. SURGICAL PROCEDURE: DHS right hip. ANESTHESIA: General. MANAGER SERVICES: [employer]. IMPLANT: Synthes DHS 135 degree, three hole sideplate with 80 mm hip screw. COMPLICATIONS: None. DRAINS: None. SPECIMEN: None. OUTCOME: Satisfactory. INDICATIONS: The patient is a 53-year-old aphasic lady with dementia, who apparently sustained a fall with subsequent right hip pain. X-rays of the right hip show a nondisplaced intertrochanteric femur fracture on the right side. The patient is a household ambulator. Given the x-ray finding and the fact the patient is still ambulatory, we are now going to proceed with application of the DHS device to allow for weightbearing and to protect against fracture displacement. Informed consent has been obtained from her . DESCRIPTION OF PROCEDURE: After the patient was brought to the operating room, a time-out was performed, followed by induction of general anesthesia. Next, the patient was positioned on the fracture table with the injured extremity held in longitudinal traction and slight internal rotation with the well leg held in extension at the hip to allow for AP and lateral C-arm imaging. Next, a sterile prep and drape performed of the right lateral thigh. A 3 inch long skin incision was made distal to the greater trochanter. After the skin was sharply incised, dissection was carried down to the underlying tensor fascia and fascia jesus. This structure was incised in line with the skin incision revealing the deeper fascia of the vastus lateralis. This fascia was incised in line with skin incision and then the muscle belly swept off the posterior leaflet of this fascia and then the muscle reflected anteriorly, gaining access to the lateral cortex of the femur. Next, using the 135 degree jig, a threaded guidewire was passed from the lateral cortex of the femur up into the femoral neck and approaching the femoral head in a near [id number] position. Once appropriately positioned, measurement was taken off this guidewire and then the step drill was set to an appropriate depth and passed over the guidewire. Next, an 80 mm hip screw with 135 degree three hole sideplate was inserted in standard fashion over this guidewire and then the plate delivered up against the lateral cortex of the femur. The guidewire was then removed and then three 4.5 mm cortical screws were passed through the plate to affix the plate to the proximal femur. At this point, final AP and lateral C-arm images were obtained that showed anatomical alignment of the fracture and appropriately positioned hardware. The wound irrigated with bulb syringe, then closed in layers with 0 Vicryl for the fascia jseus followed by 2-0 Vicryl subcutaneously and frantz for the skin. Xeroform gauze and tape dressing were applied to the lateral thigh, and the patient was transferred to recovery room in stable condition. There were no complications. She tolerated the procedure well, although she will remain intubated and placed in the ICU this is due to a difficult airway and just caution to maintain an airway in the acute postoperative. Job ID: [id number]
[2018-03-24] MEDS: Dexamethasone 4 mg/ml Vial SLOW IVP SCH ×3 (00:26→11:06)
[2018-03-24] MEDS: Acetaminophen 325 MG TAB PO SCH ×4 (00:26→17:34)
[2018-03-24] MEDS: Ketorolac Tromethamine 30 MG/ML VIAL IVP SCH ×2 (00:26→05:54)
[2018-03-24] MEDS: Ibuprofen 200 MG TAB PO SCH ×3 (05:55→20:39)
[2018-03-24] MEDS: Famotidine 20 MG TAB PO SCH ×2 (07:32→20:39)
[2018-03-24] MEDS ORDERED: Lidocaine 1% (PF) 30 ML VIAL ONE (08:02)
[2018-03-24] MEDS ORDERED: Lidocaine 1% w/Epinephrine 1:100K 20 ML VIAL ONE (08:03)
[2018-03-24] MEDS ORDERED: Oxymetazoline HCl 0.05% ( 15 ML ) NASAL PRN (09:07)
[2018-03-24] MEDS ORDERED: Magnesium 2 GM/50 ML 2 GM in Premix Bag 1 BAG IVPB SCH (09:30)
--- NOTE | 2018-03-24 10:29 | PRG ---
DATE OF SERVICE: 03/24/2018 SUBJECTIVE: Ms. Lott is a 53-year-old woman with a previous history of progressive dementia. The patient is postoperative day #1, status post DHS, right hip. There were multiple attempts to orally intubate the patient without success. The patient was ultimately nasally intubated. Due to the multiple attempts at intubation, the patient was placed on mechanical ventilator support overnight. She was placed on Decadron to minimize vocal cord swelling. This morning, she is evaluated, off sedation. She moves all extremities. When the cuff was deflated, there was significant air leak, suggesting no vocal cord edema at this time. Urinary output has been adequate. PHYSICAL EXAMINATION: VITAL SIGNS: Include blood pressure 129/84, pulse 95, respiratory rate 17, temperature is 98.9 degrees Fahrenheit, and oxygen saturation 97% on FiO2 of 35%. HEENT: Pupils are equal, round, and reactive to light bilaterally. HEART: Reveals regular rate and rhythm. LUNGS: Clear to auscultation bilaterally. Breathing was nonlabored. ABDOMEN: Soft, nontender, and nondistended. EXTREMITIES: Reveal 2+ radial and pedal pulses bilaterally. No ankle edema is present. NEUROLOGIC: Examination reveals no focal deficits present. IMPRESSION: 1. Postoperative day #1, status post dynamic hip screw, right hip. 2. Resolved acute postoperative respiratory failure. PLAN: The patient will be weaned and extubated accordingly. We will initiate physical and occupational therapy post extubation. The above findings and plan were discussed with the patient's at bedside. Total critical care time is 30 minutes. Job ID: [id number]
[2018-03-24] MEDS: Sodium Chloride 0.9% 1,000 ML IV SCH ×2 (11:05→20:48)
[2018-03-24] MEDS: traMADol HCl 50 MG TAB PO PRN (16:20)
--- NOTE | 2018-03-24 16:36 | PQF ---
CLINICAL DOCUMENTATION IMPROVEMENT CLARIFICATION FORM: ICD-10 Updated PLEASE DO AN ADDENDUM TO THE PROGRESS NOTE WITH ANY DOCUMENTATION UPDATES OR ADDITIONS AND CARRY THROUGH TO DC SUMMARY. THANK YOU. DATE: 03/24/18; 03/27/18 ATTN: Dr. Schmitz Please exercise your independent, professional judgment in responding to the clarification form. Clinical indicators are provided on the bottom of this form for your review Please check appropriate box(s): [ ] Acute respiratory failure related to surgical procedure [ X] Acute Respiratory failure not related to surgical procedure [ ] Length of Ventilator management as a part of normal recovery, usual and customary for procedure [ ] Other diagnosis [ ] Unable to determine In addition, please specify: Present on Admission (POA): [ ] Yes [X ] No [ ] Unable to determine For continuity of documentation, please document condition throughout progress notes and discharge summary. Thank You. CLINICAL INDICATORS - SIGNS / SYMPTOMS / LABS PN 03/24 : Due to multiple attempts at intubation, the pt was placed on mechanical ventilator support overnight. Resolved acute postoperative respiratory failure. Risks: H&P 03/22: "brain damage" from a previous head injury, dementia. PN 03/24: Postoperative day #1, s/p dynamic hip screw, right hip. There were multiple attempts to orally intubate the pt without success. Pt was nasally intubated. TREATMENT: Op Report 03/23: she will remain intubated and placed in the ICU this is due to a difficult airway and just caution to maintain an airway in the acute postoperative PN 03/24: She was placed on Decadron to minimize vocal cord swelling. Thank you, Lesley (This form is maintained as a part of the permanent medical record) 2015 [employer]. All Rights Reserved Lesley Valentin RN, BSN [email or web address] Office: [phone] [facility]ITAL[facility]
[2018-03-25] MEDS: Acetaminophen 325 MG TAB PO SCH ×5 (01:16→23:37)
[2018-03-25] MEDS: Ibuprofen 200 MG TAB PO SCH ×3 (05:17→20:27)
[2018-03-25] MEDS: Famotidine 20 MG TAB PO SCH ×2 (09:18→20:25)
--- NOTE | 2018-03-25 12:26 | PRG ---
DATE OF SERVICE: 03/25/2018 SUBJECTIVE: The patient remains on the critical care unit. She was extubated yesterday and kept on unit for close observation overnight. She did well overnight. This morning, she is tolerating p.o. Her pain is controlled, and she was able to work with physical therapy late yesterday. This morning, Dr. Castellano has exchanged her PEG tube without difficulty. She will likely be moved to the surgical floor today. PHYSICAL EXAMINATION: VITAL SIGNS: Temperature 99.1, heart rate 74, blood pressure 127/62, respirations 23, oxygen saturation 100% on room air. GENERAL: The patient is resting comfortably at bedside with her . She appears comfortable and in no distress. HEENT: Unremarkable. LUNGS: Clear to auscultation bilaterally. HEART: Regular rate and rhythm. ABDOMEN: Soft, flat with active bowel sounds. Again, her PEG tube was exchanged without difficulty. EXTREMITIES: The patient freely moves all 4 extremities. Capillary refill is less than 3 seconds. Pulses are 2+. LABORATORY AND RADIOGRAPHIC DATA: There are no labs or radiographs to review this morning. ASSESSMENT: 1. Status post fall. 2. Status post open reduction and internal fixation of right intertrochanteric femur fracture. 3. Severe dementia. 4. History of aphasia. PLAN: Plan will be to continue supportive care. We will move her to the surgical floor. Continue her tube feeds and have a speech evaluation and discuss placement. Job ID: [id number]
[2018-03-25] MEDS: traMADol HCl 50 MG TAB PO PRN (20:24)
[2018-03-26] MEDS: Acetaminophen 325 MG TAB PO SCH ×3 (05:36→18:22)
[2018-03-26] MEDS: Ibuprofen 200 MG TAB PO SCH ×3 (05:36→21:01)
[2018-03-26 07:59] LABS: #Lymphocytes 1.3 thou/uL (1.20-3.40); #Monocytes 0.5 thou/uL (0.11-0.59); #Neutrophils 7.6 thou/uL (1.40-6.50); %Basophils 0.2 % (0.0-1.0); %Eosinophils 0.5 % (0.0-10.0); %Lymphocytes 13.2 % (21.0-51.0); %Monocytes 5.3 % (0.0-10.0); %Neutrophils 80.8 % (42.0-75.0); Hemoglobin 10.6 g/dL (12.0-16.0); Mean Corpuscular HGB CONC 32.8 g/dL (32.0-36.0); Mean Corpuscular Hemoglobin 29.9 pg (27.0-31.0); Mean Corpuscular Volume 91.2 fL (78.0-98.0); Mean Platelet Volume 7.8 fL (7.4-10.4); Platelet Count 218 thou/uL (130-400); RBC Distribution Width 11.7 % (11.5-14.5); Red Blood Cell (RBC) Count 3.54 mill/uL (4.20-5.40); White Blood Cell (WBC) Count 9.4 thou/uL (4.8-10.8)
[2018-03-26 08:08] LABS: Anion Gap 12 mmol/L (10-20); BUN (Urea Nitrogen) 17 mg/dL (9.8-20.1); Calc. Creatinine Clearance 67 mL/min (70-130); Calcium 8.3 mg/dL (7.8-10.44); Carbon Dioxide 26 mmol/L (22-29); Chloride 103 mmol/L (98-107); Estimated GFR-MDRD Greater than 90; Glucose 86 mg/dL (70-105); Magnesium 1.5 mg/dL (1.6-2.6); Sodium 137 mmol/L (136-145)
[2018-03-26 08:15] LABS: Phosphorus 1.6 mg/dL (2.3-4.7)
[2018-03-26] MEDS: Magnesium Oxide 400 MG TAB PO SCH ×2 (09:37→20:54)
[2018-03-26] MEDS: Famotidine 20 MG TAB PO SCH ×2 (09:37→20:54)
--- NOTE | 2018-03-26 13:04 | PRG ---
DATE OF SERVICE: 03/26/2018 SUBJECTIVE: The patient is currently on the surgical floor. She has been moved up from the critical care unit yesterday. She had no issues overnight. She has been tolerating p.o. The patient is unable to chew, but she has consumed several Ensure and MightyShakes. She has not required tube feedings since yesterday afternoon when she moved here to the surgical floor. Her pain appears to be controlled and she started working with Physical and Occupational Therapy. PHYSICAL EXAMINATION: VITAL SIGNS: Temperature is 98.0, heart rate 74, blood pressure 116/69, respirations 18, oxygen saturation is 96% on room air. GENERAL: The patient appears comfortable in bed. She is awake, consuming Ensure. She appears to be at her baseline in mentation. Her at bedside agrees with this. HEENT: Unremarkable. LUNGS: Clear to auscultation bilaterally. HEART: Regular rate and rhythm. ABDOMEN: Soft, flat with active bowel sounds. EXTREMITIES: The patient is moving all 4 extremities. Her capillary refill is less than 3 seconds and pulses are 2+. LABORATORY FINDINGS: White blood cell count 9.4, hemoglobin 10.6, hematocrit 32.3, platelets 218. Sodium 137, potassium 4.0, chloride 103, CO2 of 26, BUN 17, creatinine 0.54, glucose 86, magnesium 1.5, phosphorus 1.6. There are no radiographs reviewed this morning. ASSESSMENT: 1. Status post fall. 2. Status post open reduction and internal fixation of right intertrochanteric femur fracture. 3. Hypomagnesemia. 4. Hypophosphatemia. PLAN: Plan will be to replace her electrolytes. Continue supportive care, Physical and Occupational Therapy, and the patient will be likely placed tomorrow. Job ID: [id number]
[2018-03-26] MEDS: Sodium Chloride 0.9% 1,000 ML IV SCH (16:28)
[2018-03-27] MEDS: Acetaminophen 325 MG TAB PO SCH ×2 (00:51→05:31)
[2018-03-27] MEDS: Ibuprofen 200 MG TAB PO SCH (05:30)
[2018-03-27 06:55] LABS: #Eosinphils 0.1 thou/uL (0.0-0.7); #Lymphocytes 1.9 thou/uL (1.20-3.40); #Monocytes 0.4 thou/uL (0.11-0.59); #Neutrophils 4.8 thou/uL (1.40-6.50); %Basophils 0.4 % (0.0-1.0); %Monocytes 5.6 % (0.0-10.0); Hemoglobin 10.9 g/dL (12.0-16.0); Mean Corpuscular HGB CONC 32.4 g/dL (32.0-36.0); Mean Corpuscular Hemoglobin 29.8 pg (27.0-31.0); Mean Corpuscular Volume 91.9 fL (78.0-98.0); Mean Platelet Volume 8.4 fL (7.4-10.4); Platelet Count 242 thou/uL (130-400); RBC Distribution Width 11.7 % (11.5-14.5); Red Blood Cell (RBC) Count 3.64 mill/uL (4.20-5.40); White Blood Cell (WBC) Count 7.2 thou/uL (4.8-10.8)
[2018-03-27 07:21] LABS: Anion Gap 12 mmol/L (10-20); BUN (Urea Nitrogen) 16 mg/dL (9.8-20.1); Calc. Creatinine Clearance 65 mL/min (70-130); Calcium 8.7 mg/dL (7.8-10.44); Carbon Dioxide 25 mmol/L (22-29); Chloride 102 mmol/L (98-107); Estimated GFR-MDRD Greater than 90; Glucose 80 mg/dL (70-105); Magnesium 1.6 mg/dL (1.6-2.6); Phosphorus 2.5 mg/dL (2.3-4.7); Potassium 4.2 mmol/L (3.5-5.1); Sodium 135 mmol/L (136-145)
[2018-03-27] MEDS: Famotidine 20 MG TAB PO SCH (08:32)
[2018-03-27] MEDS: Magnesium Oxide 400 MG TAB PO SCH (08:32)
[2018-03-27 08:41] VITALS: BP 116/71; TEMP 97.6
--- NOTE | 2018-03-27 11:17 | DIS ---
DATE OF ADMISSION: 03/22/2018 DATE OF DISCHARGE: 03/27/2018 ADMITTING AND DISCHARGE PHYSICIAN: Donny Schmitz DO DAIRY HUSBANDRY WORKER: Jean-Pierre Shanks MD ADMITTING DIAGNOSES: 1. Status post fall. 2. Closed right hip fracture. OPERATIONS AND PROCEDURES: DHS right hip. Surgery was by Dr. Shanks on 03/23/2018. Please see separate dictation for operative report. HISTORY AND HOSPITAL COURSE: A 53-year-old woman with history of progressive dementia, was admitted on 03/22/2018 following a fall, unwitnessed. The patient sustained a closed right hip fracture, which required DHS to right hip on 03/23/2018. Following surgery, the patient was initially placed on mechanical ventilator support, having been nasally intubated after multiple attempts at oral intubation without success. The patient had an uneventful stay in the intensive care unit and was subsequently extubated postoperative day #1. She was ultimately transferred to surgical floor, where she remained at time of discharge. Today, she is more alert and interactive with her at bedside. Pain is adequately controlled on oral analgesics. She is tolerating oral diet, having normal bowel and urinary function. She has remained hemodynamically stable and afebrile throughout this hospitalization. Her vital signs today includes blood pressure 116/71, pulse 60, respiratory rate is 20, temperature 97.6 degrees Fahrenheit, and oxygen saturation 97% on room air. The patient has maximum hospital benefit and will be discharged to long term facility today. She is to resume all pre-hospital medications as prescribed by her primary care physician. Additionally, she may take Tylenol 1000 mg p.o. q.6 hours alternating this with ibuprofen 400 mg p.o. q.8 hours p.r.n. pain. Additionally, given a prescription for tramadol 50 mg to be taken 1 to 2 p.o. q.6 hours p.r.n. breakthrough pain. The patient is to follow up with Dr. Shanks in his orthopedic surgical clinic, appointment will be arranged through Dr. Shanks's office. The patient requires no further followup from Trauma Surgery standpoint except for as needed. Above instructions explained to the patient's at bedside, who indicates understanding of information given. I have answered his questions. Job ID: [id number]
== END 2018-03-27 11:35 | DRG 480 ==
LOC: ERS 09:51 → SURG A 15:37 → CCU 03-23 16:23 → SURG A 03-25 12:03
PROVIDERS: ADMIT Surgery; ATTEND Surgery
PROC: 0QS604Z Reposition Right Upper Femur with Internal Fixation Device, Open Approach (ICD-10-PCS; principal; 2018-03-23)
PROC: 3E0G76Z Introduction of Nutritional Substance into Upper GI, Via Natural or Artificial Opening (ICD-10-PCS; 2018-03-24)
DX: S72.141A Displaced intertrochanteric fracture of right femur, initial encounter for closed fracture (principal); J96.00 Acute respiratory failure, unspecified whether with hypoxia or hypercapnia; R47.01 Aphasia; W01.0XXA Fall on same level from slipping, tripping and stumbling without subsequent striking against object, initial encounter; Y92.009 Unspecified place in unspecified non-institutional (private) residence as the place of occurrence of the external cause; F31.9 Bipolar disorder, unspecified; F03.90 Unspecified dementia, unspecified severity, without behavioral disturbance, psychotic disturbance, mood disturbance, and anxiety; Z93.1 Gastrostomy status; Z90.49 Acquired absence of other specified parts of digestive tract
CPT/HCPCS: 36415; 70450; 72125; 72131; 72170; 76000; 80048; 81003; 81015; 82805; 83735; 84100; 84134; 85025; 94002; 94003; C1713; C1769; G0390; J0131; J0690; J1100; J1885; J2001; J2060; J2405; J2704; J3010; J7050

== ENCOUNTER 2018-04-14 04:35 | Emergency (ER) | payer BC ==
[2018-04-14 05:25] LABS: #Eosinphils 0.1 thou/uL (0.0-0.7); #Lymphocytes 0.9 thou/uL (1.20-3.40); #Monocytes 0.5 thou/uL (0.11-0.59); #Neutrophils 7.1 thou/uL (1.40-6.50); %Basophils 0.4 % (0.0-1.0); %Lymphocytes 10.5 % (21.0-51.0); %Monocytes 6.3 % (0.0-10.0); %Neutrophils 81.9 % (42.0-75.0); Hemoglobin 11.8 g/dL (12.0-16.0); Mean Corpuscular HGB CONC 31.9 g/dL (32.0-36.0); Mean Corpuscular Hemoglobin 29.4 pg (27.0-31.0); Platelet Count 276 thou/uL (130-400); RBC Distribution Width 12.6 % (11.5-14.5); Red Blood Cell (RBC) Count 4.03 mill/uL (4.20-5.40); White Blood Cell (WBC) Count 8.7 thou/uL (4.8-10.8)
[2018-04-14 05:47] LABS: ALT (SGPT) 15 U/L (8-55); AST (SGOT) 22 U/L (5-34); Albumin 3.6 g/dL (3.5-5.0); Alkaline Phosphatase 97 U/L (40-150); Anion Gap 12 mmol/L (10-20); BUN (Urea Nitrogen) 16 mg/dL (9.8-20.1); Bilirubin, Total 0.4 mg/dL (0.2-1.2); Calc. Creatinine Clearance 0 mL/min (70-130); Calcium 9.3 mg/dL (7.8-10.44); Carbon Dioxide 28 mmol/L (22-29); Chloride 98 mmol/L (98-107); Estimated GFR-MDRD Greater than 90; Globulin 3.6 g/dL (2.4-3.5); Glucose 95 mg/dL (70-105); Potassium 4.5 mmol/L (3.5-5.1); Protein, Total 7.2 g/dL (6.0-8.3); Sodium 133 mmol/L (136-145)
--- NOTE | 2018-04-14 08:21 | CT ---
PRELIMINARY REPORT/[facility]/EMERGENTY AFTER-HOURS PROCEDURE CT Head Without Contrast EXAM DATE/TIME: 04/14/2018 6:19 AM CLINICAL HISTORY: 53 years old, female; Signs and symptoms; Other: Seizure; Patient HX: Patient presents for evaluation of seizure. TECHNIQUE: Axial computed tomography images of the head/brain without contrast. All CT scans at this facility use at least one of these dose optimization techniques: automated expos ure control; mA and/or kV adjustment per patient size (includes targeted exams where dose is matched to clinical indication); or iterative reconstruction. COMPARISON: No relevant prior studies available. FINDINGS: Brain: No intracranial hemorrhage, mass, mass effect, extra-axial fluid collection, or evidence for a cute or subacute infarct. No hyperdense MCA. There may be minimal patchy nonspecific chronic change i n the deep white matter. Generalized cerebral atrophy has a central predilection. The cortical compon ent has a perisylvian predilection bilaterally. Small arachnoid cyst in the middle cranial fossa (clara emeli encephalomalacia of a remote right anterior temporal lobe infarct). Ventricles/cisterns: There is bilateral lateral ventricle enlargement/ ventriculomegaly, mostly symme tric except that the right temporal horn and temporal sweep is larger than left. The left temporal ho rn is tapered and sharp. The right temporal horn tip is fairly sharp as seen on image 13. Symmetric rounding of the frontal horns. Findings are favored to represent a central predilection of the generalized cerebral atrophy rather than hydrocephalus, but no baseline study is available. The f ourth ventricle and basal cisterns are patent, and there is no obvious extrinsic compromise of the ce rebral aqueduct. Bones/joints: The bony calvarium appears in tact; no fracture. Sinuses: The included paranasal sinuses are clear. Mastoid air cells: The mastoid air cells and tympanic cavities are clear bilaterally. Soft tissues: Atraumatic appearance of the scalp and included extracranial soft tissues. IMPRESSION: 1. No intracranial hemorrhage. 2. Ventriculomegaly pattern is favored to represent a central predilection of the generalized cerebra l atrophy, which is advanced for patient age. No convincing obstructive hydrocephalus, as detailed ab ove. However, no baseline study is available and this is mention for the purpose of correlation with patient's symptoms. Although the diagnosis is rare and patient's this young, a component of normal pr essure hydrocephalus could have this appearance if the clinical syndrome corresponds. 3. Otherwise, no acute findings. Thank you for allowing us to participate in the care of your patient. Dictated and Authenticated by: Josefina Mejia MD 04/14/2018 7:26 AM Central Time ([place] & [place]) FINAL REPORT EMERGENCY AFTER HOURS NONCONTRAST CT HEAD: Date: 04/14/18 HISTORY: Seizure. COMPARISON: 03/22/18. IMPRESSION: 1. No acute infarction or hemorrhage is identified. 2. Persistent cerebral volume loss, greatest involving the frontal lobes and anterior aspects of eac h temporal lobe. 3. Ventriculomegaly, which may be on the basis of greater central cerebral volume loss. The ventricu lomegaly is unchanged when compared to study on 03/22/18 and 02/09/18. Again, these findings may be a ttributable to greater central cerebral volume loss, but normal pressure hydrocephalus cannot be enti rely excluded. 4. CT scan of the head is overall stable when compared to the study on 03/22/18. Findings are in agreement with the preliminary report by [facility]. POS: [facility]
== END 2018-04-14 09:07 | disposition home or self-care (01) ==
LOC: ERS 04:35
DX: R56.9 Unspecified convulsions (principal); F03.90 Unspecified dementia, unspecified severity, without behavioral disturbance, psychotic disturbance, mood disturbance, and anxiety; F32.9 Major depressive disorder, single episode, unspecified; Z87.891 Personal history of nicotine dependence; Z79.899 Other long term (current) drug therapy
CPT/HCPCS: 36415; 70450; 80053; 85025

== ENCOUNTER 2018-12-08 08:40 | Observation (INO) | payer BC, OTHER, SELFPAY ==
[2018-12-08 09:40] LABS: #Eosinphils 0.1 thou/uL (0.0-0.7); #Lymphocytes 1.3 thou/uL (1.20-3.40); #Monocytes 0.5 thou/uL (0.11-0.59); %Basophils 0.7 % (0.0-1.0); %Eosinophils 1.9 % (0.0-10.0); %Lymphocytes 18.8 % (21.0-51.0); %Monocytes 6.6 % (0.0-10.0); Mean Corpuscular HGB CONC 32.7 g/dL (32.0-36.0); Mean Corpuscular Hemoglobin 27.8 pg (27.0-31.0); Mean Corpuscular Volume 84.9 fL (78.0-98.0); Mean Platelet Volume 7.8 fL (7.4-10.4); Platelet Count 243 thou/uL (130-400); RBC Distribution Width 13.4 % (11.5-14.5); Red Blood Cell (RBC) Count 5.03 mill/uL (4.20-5.40); White Blood Cell (WBC) Count 6.9 thou/uL (4.8-10.8)
[2018-12-08 09:50] LABS: ALT (SGPT) 10 U/L (8-55); AST (SGOT) 22 U/L (5-34); Albumin 3.9 g/dL (3.5-5.0); Alkaline Phosphatase 75 U/L (40-110); Anion Gap 12 mmol/L (10-20); BUN (Urea Nitrogen) 11 mg/dL (9.8-20.1); Bilirubin, Total 0.4 mg/dL (0.2-1.2); CK (CPK) 261 U/L (29-168); Calc. Creatinine Clearance 0 mL/min (70-130); Calcium 9.6 mg/dL (7.8-10.44); Carbon Dioxide 30 mmol/L (22-29); Chloride 99 mmol/L (98-107); Estimated GFR-MDRD 85; Globulin 4.6 g/dL (2.4-3.5); Glucose 89 mg/dL (70-105); Protein, Total 8.5 g/dL (6.0-8.3); Sodium 137 mmol/L (136-145)
--- NOTE | 2018-12-08 10:09 | RAD ---
2 views of the left humerus: 12/08/2018 COMPARISON: None HISTORY: Fall, dementia FINDINGS: There is mild elevation of the right humeral head. There is no displaced humerus fracture. The humerus appears demineralized. There is a lucency overlying the soft tissues medial to the midshaft right humerus which could be artifactual in nature or could be associated with soft tissue i njury. IMPRESSION: Incidental findings as above. No displaced humerus fracture. If there are symptoms referable to the shoulder or elbow, dedicated imaging of those joints advised.
--- NOTE | 2018-12-08 10:31 | RAD ---
EXAM: CHEST ONE VIEW HISTORY: Chest injury after a fall. COMPARISON: 02/12/2018 FINDINGS: The cardiac silhouette and pulmonary vasculature is within normal limits. The lungs are clear. Osteop enia is present. Degenerative changes are noted in the spine. No obvious fracture is appreciated. IMPRESSION: 1. No acute cardiopulmonary process. 2. Osteopenia.
[2018-12-08 10:44] LABS: Bilirubin Negative (Negative); Blood, Urine Trace (Negative); Clarity Turbid (Clear); Glucose, Urine (Dipstick) Normal (Negative); Leukocyte 500 Leu/uL (Negative); Nitrite 2+ (Negative); Protein, Urine (Dipstick) 10 mg/dL (Neg-Trace); Squamous Epithelial 0-3 HPF (0-3); Transitional Epithelial 0-3 HPF (None Seen); Urobilinogen Normal mg/dL (Less than 2)
[2018-12-08 10:59] LABS: Bacteria/HPF 4+ HPF (None Seen)
[2018-12-08] MEDS ORDERED: cefTRIAXone\\ROCEPHIN 2 GM VIAL ONE (11:59)
--- NOTE | 2018-12-08 12:00 | CT ---
CT OF THE BRAIN WITHOUT CONTRAST: Date: 12/08/18 COMPARISON: 04/14/18. HISTORY: Dementia. Fall with forehead laceration and head trauma. TECHNIQUE: Multiple contiguous axial images were obtained in a CT of the brain without contrast. FINDINGS: Atrophy is seen in both temporal lobes, right greater than left. There are scattered hypodensities in the subcortical and periventricular white matter, likely secondary to small vessel ischemic disease. There also appears to be frontal atrophy with ex vacuo dilatation of the lateral ventricles. There i s no evidence of hydrocephalus, intracranial hemorrhage, or extra-axial fluid collection. The calvarium and overlying soft tissues are unremarkable. The visualized paranasal sinuses and masto id air cells are well aerated. IMPRESSION: 1. No evidence of acute intracranial abnormality. 2. Frontotemporal atrophy. POS: [facility]
--- NOTE | 2018-12-08 13:51 | HP ---
PRIMARY CARE PHYSICIAN: Dr. Barrios. REASON FOR ADMISSION: Urinary tract infection. HISTORY OF PRESENT ILLNESS: A 53-year-old female who has underlying history of dementia. The patient is nonverbal. She was brought to emergency room because the patient fell down last night and she had laceration in her forehead. The patient is nonverbal and she cannot talk. The patient's is taking care of her since fracture of her hip. She was at skilled nursing, but skilled nursing closed and since then, the patient is at home. The patient's is mainly caregiver. 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 Last night, the patient had episode of fall and this morning when he returned from work, he noticed that his on the floor and that is why the patient was brought to emergency room. The patient has history of oropharyngeal dysphagia and PEG tube placement, but the PEG tube spontaneously came out and since then, the patient does not have any another PEG tube, but the patient is able to drink liquid Jevity at home. REVIEW OF SYSTEMS: All review of systems reviewed with the patient, but unable to review due to nonverbal status and dementia. PAST MEDICAL HISTORY: Dementia, nonverbal status, frontotemporal dementia, vestibular schwannoma, hypertension. PAST SURGICAL HISTORY: Cholecystectomy, right knee surgery, ovarian cyst removed, PEG tube placement, surgery for right intertrochanteric femur fracture. PAST PSYCHIATRIC HISTORY: History of anxiety, depression, bipolar disorder. ALLERGIES: CELECOXIB AND CODEINE. SOCIAL HISTORY: The patient is . Her is primary family nurse. No history of tobacco, alcohol, or illicit drug abuse. EMERGENCY ROOM COURSE: The patient has received Rocephin. FAMILY HISTORY: No strong family history of premature coronary artery disease, stroke, or cancer. CURRENT HOME MEDICATIONS: 1. Prozac 20 mg daily. 2. Keppra 500 mg twice daily. PHYSICAL EXAMINATION: VITAL SIGNS: Currently, blood pressure 147/100, pulse 72, respiratory rate 18, temperature 98.6, saturation 100% on room air. Weight 49 kg. GENERAL: The patient is currently alert, awake, chronically ill, no obvious acute distress, nonverbal. HEENT: Head; the patient does have ecchymosis and swelling and dried blood on right forehead. Eyes; pupils round, reactive to light. ENT; oropharynx within normal limits. Dry mucous membrane. NECK: Supple. No JVD. No thyromegaly. No carotid bruit. LUNGS: Clear to auscultation without any rhonchi or rales. CARDIAC: S1, S2. Regular without any murmur. No gallop. No rub. ABDOMEN: Healing wound from PEG tube placement. No peritoneal sign. No guarding. No rigidity. No rebound. BACK: Unremarkable. No CVA tenderness. EXTREMITIES: Upper extremity; passive movement of all joints are normal. Lower extremities; passive movement of all joints are normal. No edema. NEUROLOGIC: Awake, nonverbal at baseline, does not follow any commands. SKIN: No skin rash. HEMATOLOGIC: No lymphadenopathy. PSYCHIATRIC: Flat affect. SIGNIFICANT LABORATORY DATA: EKG showing normal sinus rhythm, within normal limit. Urinalysis consistent with urinary tract infection. Chest x-ray based on my review, no acute cardiopulmonary process. X-ray humerus, no displaced humeral fracture noted. CT brain based on my review, no acute intracranial process. CBC; WBC 6.9, hemoglobin 14.0, platelet 243. BMP; sodium 137, potassium 4.0, chloride 99, carbon dioxide 30, BUN 11, creatinine 0.71, glucose 89, calcium 9.6. LFT; AST 22, ALT 10, alkaline phosphatase 75, albumin 3.9. CK 261, troponin less than 0.010. Urinalysis consistent with UTI. ASSESSMENT: 1. Urinary tract infection. 2. Mild dehydration. 3. Mechanical fall and laceration to forehead. 4. Nonverbal status with frontotemporal dementia. 5. Anxiety, depression, and bipolar disorder. 6. Chronic physical deconditioning. 7. Protein-calorie malnutrition. 8. Mild rhabdomyolysis due to fall. PLAN: 1. Observation to medical floor. Rocephin 1 g q.24 hours. Gentle IV fluid with NS at 100 mL/h. Symptomatic treatment, mechanical soft diet, Ensure supplement t.i.d. We will consider discharging her home tomorrow with family support. 2. Deep venous thrombosis prophylaxis, SCD boots. GI prophylaxis, Pepcid 20 mg p.o. or IV b.i.d. 3. Code status: The patient is full code. The patient's is surrogate decision maker. DISPOSITION PLAN: Within 24 hours. Plan of care discussed with the patient's at bedside in the emergency room. Job ID: [id number]
[2018-12-08] MEDS ORDERED: Ondansetron ODT 4 MG TAB PO PRN (14:48)
[2018-12-08] MEDS ORDERED: Bisacodyl 10 MG SUPP PR PRN (14:48)
[2018-12-08] MEDS ORDERED: Senokot S 8.6-50 MG TAB PO PRN (14:48)
[2018-12-08] MEDS ORDERED: Artificial Tears 18 DROP/0.9 ML EA EYE PRN (14:48)
[2018-12-08] MEDS ORDERED: Sodium Chloride 0.65% Nasal 44 ML BOT EA NARE PRN (14:48)
[2018-12-08] MEDS ORDERED: Loperamide HCl 2 MG CAP PO PRN (14:48)
[2018-12-08] MEDS ORDERED: Cepastat Lozenges 1 LOZ PO PRN (14:48)
[2018-12-08] MEDS ORDERED: Acetaminophen 650 MG Suppository PR PRN (14:48)
[2018-12-08] MEDS ORDERED: hydrALAZINE 20 MG/ML VIAL SLOW IVP PRN (14:48)
[2018-12-08] MEDS ORDERED: Acetaminophen 325 MG TAB PO PRN (14:48)
[2018-12-08] MEDS ORDERED: Ondansetron PF 4 MG/2 ML Vial IVP PRN (14:48)
[2018-12-08] MEDS ORDERED: Labetalol HCl 100 MG/20 ML VIAL SLOW IVP PRN (14:48)
[2018-12-08] MEDS ORDERED: Zolpidem Tartrate 5 MG TAB PO PRN (14:48)
[2018-12-08] MEDS ORDERED: Diabetic Tussin 200 MG/10 ML UDCUP PO PRN (14:48)
[2018-12-08] MEDS ORDERED: Loratadine 10 MG TAB PO PRN (14:48)
[2018-12-08] MEDS ORDERED: Acetaminophen 650 MG/20.3 ML UDCUP PER TUBE PRN (14:57)
[2018-12-08] MEDS: Famotidine/PF 20 mg/2ml Vial SLOW IVP SCH (20:53)
[2018-12-08] MEDS: Sodium Chloride 0.9% 1,000 ML IV SCH (20:59)
[2018-12-08] MEDS: Famotidine 20 MG TAB PO SCH (21:01)
[2018-12-09 06:04] LABS: #Eosinphils 0.2 thou/uL (0.0-0.7); #Lymphocytes 1.9 thou/uL (1.20-3.40); #Monocytes 0.4 thou/uL (0.11-0.59); #Neutrophils 3.5 thou/uL (1.40-6.50); %Basophils 0.3 % (0.0-1.0); %Lymphocytes 31.3 % (21.0-51.0); %Monocytes 6.8 % (0.0-10.0); %Neutrophils 58.5 % (42.0-75.0); Hemoglobin 13.3 g/dL (12.0-16.0); Mean Corpuscular HGB CONC 33.3 g/dL (32.0-36.0); Mean Corpuscular Hemoglobin 27.6 pg (27.0-31.0); Mean Corpuscular Volume 82.9 fL (78.0-98.0); Mean Platelet Volume 8.5 fL (7.4-10.4); Platelet Count 184 thou/uL (130-400); RBC Distribution Width 13.4 % (11.5-14.5); Red Blood Cell (RBC) Count 4.83 mill/uL (4.20-5.40); White Blood Cell (WBC) Count 5.9 thou/uL (4.8-10.8)
[2018-12-09 06:07] LABS: Anion Gap 13 mmol/L (10-20); BUN (Urea Nitrogen) 12 mg/dL (9.8-20.1); Calc. Creatinine Clearance 78 mL/min (70-130); Calcium 8.9 mg/dL (7.8-10.44); Carbon Dioxide 25 mmol/L (22-29); Chloride 104 mmol/L (98-107); Estimated GFR-MDRD Greater than 90; Glucose 85 mg/dL (70-105); Sodium 138 mmol/L (136-145)
[2018-12-09] MEDS: Famotidine 20 MG TAB PO SCH (07:58)
[2018-12-09] MEDS: Famotidine/PF 20 mg/2ml Vial SLOW IVP SCH (07:58)
[2018-12-09] MEDS: Sodium Chloride 0.9% 1,000 ML IV SCH ×2 (09:50→14:19)
--- NOTE | 2018-12-09 10:36 | DIS ---
DATE OF ADMISSION: 12/08/2018 DATE OF DISCHARGE: 12/09/2018 PRIMARY CARE PHYSICIAN: Dr. Barrios. DISCHARGE DISPOSITION: Home. PRIMARY DISCHARGE DIAGNOSIS: Urinary tract infection. SECONDARY DISCHARGE DIAGNOSES: Frontotemporal dementia, anxiety, depression, bipolar disorder, and history of vestibular schwannoma. PRIMARY PROCEDURE/OPERATION: None. RADIOLOGICAL INVESTIGATION: Chest x-ray normal. Humerus x-ray negative for any fracture. CT brain negative for any acute intracranial process. SIGNIFICANT LABORATORY DATA: WBC 5.9, hemoglobin 13.3, and platelets 184. Sodium 138, potassium 4.0, BUN 12, creatinine 0.64, and calcium 8.9. Liver enzymes normal. Albumin 3.9. Troponin negative. Urinalysis consistent with UTI. DISCHARGE MEDICATIONS: 1. Prozac 10 mg daily. 2. Remeron 30 mg daily. 3. Cipro 250 mg p.o. b.i.d. for 5 more days. CONTRAINDICATION: None. CODE STATUS: Full code. INPATIENT TUBERCULOSIS SPECIALIST: None. ALLERGIES: CELECOXIB, CODEINE, IODINE, LATEX, AND DEMEROL. DISCHARGE PLAN: Posthospital, the patient will follow up with primary care physician in 1 week. HOSPITAL COURSE: This is a 53-year-old female, who has pretty much advanced frontotemporal dementia and she is bed-bound status. She is on a liquid and full liquid and mechanical soft diet at home and she is able to take by mouth. The patient is nonverbal. She was brought to emergency room because she had an episode of fall during nighttime, and she had a mild laceration over her right eyebrow. The patient was admitted in the hospital because she had a urinary tract infection on urinalysis. We gave her Rocephin while in the hospital; on discharge, we changed to Cipro for another 5 days. Overnight, she was hydrated with IV fluid. The patient is back to her baseline level. We are also involving case worker to assist with discharge needs, but otherwise the patient does not need any inpatient hospitalization. She is medically stable. PHYSICAL EXAMINATION: I have seen and examined the patient at bedside today. VITAL SIGNS: Temperature 97.7, pulse 62, respiratory rate 16, saturation 100% on room air, and blood pressure 129/72. Weight 109 pounds. GENERAL: The patient is currently alert, awake, nonverbal, no obvious acute distress. HEENT: Head, normocephalic and atraumatic. Eyes; pupils round, reactive to light. Extraocular muscle intact. ENT, oropharynx within normal limits. LUNGS: Clear to auscultation without any rhonchi or rales. CARDIAC: S1 and S2 regular without any murmur. ABDOMEN: Soft and benign. EXTREMITIES: No edema. NEUROLOGIC: Nonfocal examination. SKIN: The patient does have tinea infection and that is why we advised the patient's to buy [id number] clotrimazole 1% cream and apply over affected area as directed twice daily. CONDITION: The patient is medically stable for discharge later on today after case worker. Job ID: [id number]
[2018-12-09] MEDS ORDERED: cefTRIAXone\\ROCEPHIN 1 GM in Sodium Chloride 0.9% 100 ML IVPB SCH (12:00)
[2018-12-09 17:00] VITALS: BP 114/72; TEMP 97.9
--- NOTE | 2018-12-16 13:56 | EKG ---
Test Reason : FALL Blood Pressure : / mmHG Vent. Rate : 067 BPM Atrial Rate : 067 BPM P-R Int : 148 ms QRS Dur : 076 ms QT Int : 404 ms P-R-T Axes : 031 -02 045 degrees QTc Int : 426 ms Normal sinus rhythm Normal ECG Confirmed by FRANCO MOHAN DO ([id number]), movie editor CRYSTAL DAVILA ([id number]) on 12/16/2018 1:55:42 PM Referred By: MARQUES Confirmed By:FRANCO MOHAN DO
== END 2018-12-09 16:50 | disposition home or self-care (01) ==
LOC: ERS 08:40 → 2SW 13:53 → T4-B 12-09 09:15
PROVIDERS: ADMIT Internal Medicine; ATTEND Internal Medicine
DX: S01.81XA Laceration without foreign body of other part of head, initial encounter (principal); M62.82 Rhabdomyolysis; E86.0 Dehydration; G31.09 Other frontotemporal neurocognitive disorder; F02.80 Dementia in other diseases classified elsewhere, unspecified severity, without behavioral disturbance, psychotic disturbance, mood disturbance, and anxiety; F41.9 Anxiety disorder, unspecified; F32.9 Major depressive disorder, single episode, unspecified; N39.0 Urinary tract infection, site not specified; R53.81 Other malaise; M85.88 Other specified disorders of bone density and structure, other site; E46 Unspecified protein-calorie malnutrition; Z68.20 Body mass index [BMI] 20.0-20.9, adult; W18.30XA Fall on same level, unspecified, initial encounter; Z79.899 Other long term (current) drug therapy; Z88.5 Allergy status to narcotic agent; Z88.8 Allergy status to other drugs, medicaments and biological substances; Z91.040 Latex allergy status; Z91.041 Radiographic dye allergy status; Z87.891 Personal history of nicotine dependence
CPT/HCPCS: 36415; 51701; 70450; 71045; 80048; 80053; 81003; 81015; 82550; 84484; 85025; 93005; 96361; 96365; 96375; 96376; A4353; G0378; J0696; S0028

== ENCOUNTER 2019-01-12 14:28 | Emergency (ER) | payer OTHER, SELFPAY ==
--- NOTE | 2019-01-12 15:42 | RAD ---
Exam:2 views left HISTORY: Pain. Swelling. Trauma COMPARISON: None FINDINGS: Diffuse bony mineralization. Mild loss of the medial compartment and lateral compartment adam int space height. No fracture. There is significant soft tissue swelling and joint effusion. IMPRESSION: 1. Diffuse bony mineralization. 2. No fracture. 3. Soft tissue swelling and joint effusion. If there is concern for internal derangement, consider MR I.
== END 2019-01-12 16:06 | disposition home or self-care (01) ==
LOC: ERS 14:28
DX: S89.92XA Unspecified injury of left lower leg, initial encounter (principal); F03.90 Unspecified dementia, unspecified severity, without behavioral disturbance, psychotic disturbance, mood disturbance, and anxiety; F31.9 Bipolar disorder, unspecified; Z87.891 Personal history of nicotine dependence; Z79.899 Other long term (current) drug therapy; W18.30XA Fall on same level, unspecified, initial encounter

== ENCOUNTER 2019-03-26 15:49 | Emergency (ER) | payer BC, SELFPAY ==
--- NOTE | 2019-03-26 17:36 | CT ---
CT BRAIN NONCONTRAST: DATE: 03-26-2019 HISTORY: 54-year-old female status post head trauma from fall. Recent changes in appetite. COMPARISON: 12-08-2018 FINDINGS: Again noted is the cortical atrophy involving the bilateral frontal lobes and bilateral anterior temp oral lobes. In addition, there is additional asymmetrical encephalomalacia and gliosis at the right a nterior temporal tip. There is ventriculomegaly of the frontal horns of the lateral ventricles bilate rally, third ventricle, and the right temporal horn, on an ex vacuo basis. No obstructive hydrocephal us, mass effect, midline shift, depressed acute calvarial fracture, or acute intracranial hemorrhage. No interval change overall since 12-08-18. IMPRESSION: 1. No acute intracranial findings. 2. Evidence for frontotemporal dementia. 3. Evidence for additional insult at the anterior pole of the right temporal lobe, either old traumat ic injury or old infarction. 4. No interval change overall since 12-08-2018. JN Gloria POS: OFF
--- NOTE | 2019-03-26 17:36 | RAD ---
Exam:2 views right shoulder HISTORY: Pain. Trauma. Fall. COMPARISON: None FINDINGS: Patient images provided, no dislocation. No definite fracture. Diffuse bony mineralization. IMPRESSION: No obvious fracture or dislocation.
== END 2019-03-26 19:10 | disposition home or self-care (01) ==
LOC: ERS 15:49
DX: S00.83XA Contusion of other part of head, initial encounter (principal); S40.011A Contusion of right shoulder, initial encounter; F03.90 Unspecified dementia, unspecified severity, without behavioral disturbance, psychotic disturbance, mood disturbance, and anxiety; F31.9 Bipolar disorder, unspecified; Z87.891 Personal history of nicotine dependence; W06.XXXA Fall from bed, initial encounter
CPT/HCPCS: 70450